=== PATIENT | female | born 2005 | race Caucasian/White ===

== ENCOUNTER 2024-09-30 10:24 | Emergency (ER) | payer OTHER, SELFPAY ==
--- NOTE | 2024-09-30 10:42 | ED_ITS ---
HPI - General Adult General Chief complaint: Abdominal Pain Stated complaint: LT Side Abdominal Pain Time Seen by Provider: 09/30/24 10:43 Source: patient Mode of arrival: ambulatory Limitations: no limitations History of Present Illness HPI narrative: 19-year-old female patient presents to [facility] with complaints of left abdominal pain for the past month. Patient states that she thought she might have just pulled a muscle because she does work out often. Patient states that she feels like the left sided abdominal pain is getting worse and last night did have some vomiting episodes. Patient states that has since resolved. Last normal bowel movement was this morning. Denies fevers, body aches or chills. Denies chest pain or shortness of breath. Denies any recent illness. Patient states last menstrual cycle was approximately 2 months ago but states that that is normal for her. Patient is currently on control denies any sexual activity. Related Data Allergies Allergy/AdvReac Type Severity Reaction Status Date / Time Penicillins Allergy Unknown Verified 06/26/19 19:26 Review of Systems Review of Systems: CONSTITUTIONAL: Denies fever, chills, or sweats. EYES: Denies visual changes, redness, or discharge. ENT: Denies rhinorrhea, congestion, sore throat, or otalgia. CARDIOVASCULAR: Denies chest pain, palpitations, or edema. RESPIRATORY: Denies cough or dyspnea. GASTROINTESTINAL: Positive left-sided abdominal pain, denies nausea, positive vomiting, denies diarrhea. GENITOURINARY: Denies dysuria or hematuria. SKIN: Denies rash or itching. MUSCULOSKELETAL: Denies back pain, joint pain, or myalgia. NEUROLOGIC: Denies headache, numbness, or weakness. PSYCHIATRIC: Denies anxiety or depression. PMFSH Past Medical History Medical History (Updated 09/30/24 @ 11:23 by DIPTI Cardoso) Pathological fracture, left finger(s), initial encounter for fracture Comments At the time of my signature I agree with nursing past medical history, surgical, social, and family history. There is no relevant family history pertinent to the presenting complaint. Exam Narrative: GENERAL: Well-appearing, well-nourished, and in no acute distress. HEAD: Normocephalic, atraumatic. EYES: PERRLA and EOMI. ENT: Nares clear, no rhinorrhea or epistaxis. Mucous membranes moist. NECK: Supple. No lymphadenopathy CHEST: Clear to auscultation. No respiratory distress. HEART: Regular rate and rhythm. No murmur heard. Normal peripheral pulses. ABDOMEN: Soft, flat, nondistended. No guarding, rebound tenderness, or rigid. No pulsatilla masses. hyperactive Bowel sounds present in all four quadrants. No organomegaly. Negative Louis?s sign. No periumbicial tenderness. patient complain of tenderness to left upper quadrant on palpation. No Supra public tenderness or distension. Good femoral pulses bilaterally. No hernia noted. No scars or surface trauma. EXTREMITIES: Normal range of motion. No edema. SKIN: Warm, dry, no rash. NEURO: No focal deficits. Alert and oriented x3. Course Course Level of Care: Express Care Visit Reevaluation(s) Reevaluation #1: re-evaluated patient notified her that her urine does not show anything concerning in her test is negative today. Discussed with patient that I highly recommend that she follow-up with her primary doctor and possibly get an ultrasound for further evaluation. Discussed with patient to continue to monitor symptoms if she has worsening symptoms such as worsening abdominal pain, spiking fevers, vomiting or diarrhea then I highly recommend she go to the ER for further evaluation. Discussed with patient I do not see anything that is of concern to day to center the emergency department but again recommend to monitor her symptoms. Patient verbalized understanding denies any other questions or concerns at this time. Date: 09/30/24 Time: 11:26 Vital Signs Vital signs: Vital Signs Temperature 36.7 C 09/30/24 11:00 Pulse Rate 115 H 09/30/24 11:00 Respiratory Rate 20 09/30/24 11:00 Blood Pressure 106/64 09/30/24 11:00 Pulse Oximetry 99 09/30/24 11:00 Oxygen Delivery Room Air 09/30/24 11:00 Temperature 36.7 C 09/30/24 11:00 Pulse Rate 115 H 09/30/24 11:00 Respiratory Rate 20 09/30/24 11:00 Blood Pressure 106/64 09/30/24 11:00 Pulse Oximetry 99 09/30/24 11:00 Oxygen Delivery Room Air 09/30/24 11:00 vital signs reviewed. Medical Decision Making MDM Narrative Medical decision making narrative: Plan of care patient is to obtain a urine dip and a test to assess. Discussed with patient that we are not equipped to workup abdominal pain here however due to fact that she is not having severe pain and there is no fever or sick symptoms involved with this most likely will need follow-up with her primary doctor to obtain outpatient testing such as ultrasound. discussed with patient if symptoms worsen then she would need to go the ER for further evaluation. Patient verbalized understanding. Differential Diagnosis Differential Diagnosis: Differential diagnosis: Appendicitis, ovarian torsion, gallbladder disease, ovarian torsion, pancreatitis, lower lobe pneumonia,AAA, AMI or ACS, DKA, diverticulitis. Uncomplicated lower UTI, uncomplicated UTI, pyelonephritis Vital Signs Vital Signs: Vital Signs Temperature 36.7 C 09/30/24 11:00 Pulse Rate 115 H 09/30/24 11:00 Respiratory Rate 20 09/30/24 11:00 Blood Pressure 106/64 09/30/24 11:00 Pulse Oximetry 99 09/30/24 11:00 Oxygen Delivery Room Air 09/30/24 11:00 Temperature 36.7 C 09/30/24 11:00 Pulse Rate 115 H 09/30/24 11:00 Respiratory Rate 20 09/30/24 11:00 Blood Pressure 106/64 09/30/24 11:00 Pulse Oximetry 99 09/30/24 11:00 Oxygen Delivery Room Air 09/30/24 11:00 Lab Data Labs: Lab Results 09/30/24 Range/Units 11:12 POC Urine Color Yellow POC Urine Clarity Clear POC Urine pH 6.5 POC Ur Specif [place] 1.010 POC Urine Protein Negative (Negative) POC Ur Glucose (UA) Negative (Negative) POC Urine Ketones Negative (Negative) POC Urine Blood Negative (Negative) POC Urine Nitrite Negative (Negative) POC Urine Bilirubin Negative (Negative) POC Urine Urobilinogen 0.2 POC U Leukocyte Esteras 1+ (Negative) Critical Care Time Critical Care Time Critical Care Time: No Discharge Plan Discharge Clinical Impression: Left sided abdominal pain of unknown cause Patient Disposition: Home, Self-Care Condition: Stable Instructions: Antibiotic Form, Abdominal Pain (ED) Additional Instructions: No serious cause of abdominal pain is found at this time. It is important to carefully watch for changes in the abdominal pain that might suggest a serious condition. See your doctor or return to the emergency department immediately if your condition gets worse. These symptoms suggest serious causes of abdominal pain: Your unable to walk easily or walking in a bent over position. You are experiencing pain in the right lower part of her abdomen. Stepping or jumping results in severe pain. The abdomen is hard and painful when you press on it. There is severe abdominal pain when coughing. You are vomiting or gagging. Vomiting is bloody or green or looks like chocolate or coffee. The belly looks very full or basic. You're experiencing severe pain every 3-20 minutes. The stool is bloody or black. You are drowsy, weak, fussy, pale. Patient Language: Jamaican Follow-up/Referrals: Robby,Jed [Other] Time of Disposition: 11:24
[2024-09-30 11:00] VITALS: BP 106/64; PULSE 115; RESP 20; TEMP 36.7; O2SAT 99
[2024-09-30 11:17] LABS: EDUAAPPEAR Clear; EDUABILI Negative (Negative); EDUABLOOD Negative (Negative); EDUACOLOR1 Yellow; EDUAGLUCOSE Negative (Negative); EDUAKETONE Negative (Negative); EDUALEUKO 1+ (Negative); EDUANITRATE Negative (Negative); EDUAPH 6.5; EDUAPROTEIN Negative (Negative); EDUAUROBILI 0.2
[2024-09-30 18:51] LABS: BEDSIDEPREGUCG Negative (Negative)
--- OUTSIDE RECORDS SUMMARY | 2024-10-04 05:22 | XMS_ITS | Patient Health Summary ---
Author Organization [facility] Address [address] [place] [address] Care Team Providers Care Bookstore Clerk Name Role Phone Jed Bustamante MD Primary Care Provider [phone] Note from [facility],non-owned Affiliates and Associated Physician Practices is amultiple site organization consisting of ambulatory clinics and hospital sitesin [place], [place], [place] and [place]. This disclosure is being madepursuant to the Care Everywhere program and may not contain all information available regarding this patient. Last updated 18.[facility] Allergies * Penicillins(Rash) -High Criticality Medications * Be aware that medications may not be up to date on this document. Alwaysverify current medications with the patient. * loratadine (CLARITIN) 5 MG chew tablet Take 5 mg by mouth daily. 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 Seasonal allergies 01/22/2011 Atopic dermatitis 01/22/2011 Social History Tobacco Use Types Packs/Day Years Used Date Smoking Tobacco: Never Assessed Sex and Gender Information Value Date Recorded Sex Assigned at Not on file Gender Identity Not on file Sexual Orientation Not on file Last Filed Vital Signs Vital Sign Reading Time Taken Comments Blood Pressure 82/48 01/22/2011 8:42 AM CDT Pulse 88 01/22/2011 8:42 AM CDT Temperature - - Respiratory Rate 20 01/22/2011 8:42 AM CDT Oxygen Saturation - - Inhaled Oxygen Concentration - - Weight 26.4 kg (58 lb 3.2 oz) 01/22/2011 8:42 AM CDT Height 128.9 cm (4' 2.75 ) 01/22/2011 8:42 AM CD T Body Mass Index 15.89 01/22/2011 8:42 AM CDT Care Teams Bookstore Clerk Relationship Specialty Start Date End Date Jed Bustamante MD [address] [place] [phone] PCP - General 01/22/11
--- OUTSIDE RECORDS SUMMARY | 2024-10-04 05:22 | XMS_ITS | Encounter Summary ---
Author Organization [facility] Address [address] [place] [address] Phone Care Team Providers Care Internal Corrosion Specialist Name Role Phone Jed Bustamante MD Primary Care Provider Reason for Visit * Reason Comments Follow-up Encounter Details Date Type Department Care Team (Late st Contact Info) Description 05/25/2022 1:10 PM CDT Office Visit [facility] Orthopaedic Surgery [address] [place] [address] [place] [phone] [place] [address] [place] [address] Synovial plica of right knee (Primary Dx) Social History Tobacco Use Types Packs/Day Years Used Date Smoking Tobacco: Never Smokeless Tobacco: Never AUDIT-C Answer Date Recorded Q1: How often do you have a drink containing alc ohol? Never 12/26/2021 Average Number of Drinks Not on file 022 Q3: How often do you have si x or more drinks on one occasion? 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 Patient Name: Dm Burgess Date: 05/25/2022 INTERIM HISTORY: Follow up from Right Knee Arthroscopy, Resection Plica - Right on 12/26/2021 The patient has recently had pain: every couple of days The current level of pain is: 2 The worst it has been in the last few days is: 5 only when she sits with her legs crossed for long period of time Wound complaints: None Patient is recovered from surgery PHYSICAL EXAM: Incision: well healed Erythema: No Edema: No Effusion: No Ecchymosis: No Discharge: No 0-145 degrees of flexion without crepitus No tenderness Good quad bulk IMPRESSION/DIAGNOSIS: Doing well 5 months following surgery. PLAN: I reassured the patient that she has reached a full recovery. We gave her full release to get back to volleyball. Follow-up is as needed. She had all her questions answered and appears pleased with the outcome of her treatment. Return to clinic: PRN documented in this encounter Plan of Treatment Not on file documented as of this encounter Visit Diagnoses Diagnosis Synovial plica of right knee- Primary documented in this encounter Care Teams Internal Corrosion Specialist Relationship Specialty Start Date End Date Jed Bustamante MD [address] [place] [id number] PCP - General Pediatrics 10/21/21 documented as of this encounter
--- OUTSIDE RECORDS SUMMARY | 2024-10-04 05:22 | XMS_ITS | Encounter Summary ---
Author Organization [facility] Address [address] [place] [address] Care Team Providers Care Plastic Dolls Mold Filler Name Role Phone Jed Bustamante MD Primary Care Provider [phone]- [phone] Reason for Visit * Reason Comments Evaluation possible premature a osvaldonarche Encounter Details Date Type Department Care Team (Latest Contact Info) Description 01/22/2011 8:30 AM CDT - 01/22/2011 8:34 AM CDT Hospital Encounter [facility] - Endocrinology [address] [place] [id number] Discharge Disposition: Home or Self Care Social History Tobacco Use Types Packs/Day Years Used Date Smoking Tobacco: Never Assessed Sex and Gender Information Value Date Recorded Sex Assigned at Not on file Gender Identity Not on file Sexual Orientation Not on file documented as of this encounter Discharge Instructions * Patient Instructions* Shahriar Stapleton MD - 01/22/2011 9:12 AM CDT Call the office in one month ([phone]) to schedule appointment in six months documented in this encounter Progress Notes * Shahriar tSapleton MD - 01/22/2011 8:53 AM CDT Dm Burgess and her mother were seen in our outpatient Pediatric Endocrinology offices at [facility] on January 22, 2011. She is a 5 y.o. 8 m.o. girl who is referred for evaluation of of a two year history of adult type body odor and a six month history of pubic hair growth. Present Illness Dm is an otherwise healthy girl with a history of seasonal allergies and atopic dermatitis. She has not developed problems with facial acne, breast tissue development, headaches, nausea, vomiting,diarrhea, polyuria, polydipsia, fever, or rash. PMH she was born full term by normal spontaneous vaginal delivery following uncomplicated gestation. weight was 7 lb 10 oz with length 20 inches. Hospitalizations:at age two weeks for a febrile illness Surgery: None. Significant injuries:none. Chronic illnesses:seasonal allergies, atopic dermatitis Infectious diseases:none Immunizations:UTD Allergies:Penicillins Regular Medications:Current outpatient prescriptions Medication Sig Dispense Refill ??? loratadine (CLARITIN) 5 MG chew tablet Take 5 mg by mouth daily. Allergy: No history of other allergic problems FAMILY HISTORY Mother, age 36 years, height 5 feet 4.-3/4 inches tall, and recalls menarche at age 14 years. She has no medical problems. Father, age 35 years, height 6 feet 5-3/4 inches tall, and recalls completing growth at age 21 years. He has no medical problems. Sister is 4 years old and has no medical problems. An uncle and female cousin on mother's side of the family have a history of early puberty with the cousin having menarche at age 7 years. There is no family history or significant disorders of stature or of puberty, thyroid disease, diabetes, adrenal disease, pituitary disease, infant or childhood , seizures, mental retardation, congenital disorders of vision or hearing. Social History: Lives with: Parents School: Elementary Stresses: no stress events have occurred REVIEW OF SYSTEMS General: no fevers or weight change ENT: normal Skin: no rash Cardiovascular: no palpitations Gastrointestinal: no heartburn Genitourinary: no urinary frequency Endocrine: no fatigue or temperature intolerance Psychiatric: no anxiety or depression Neurologic: no headaches or tremors Physical Examination: BP 82/48 Pulse 88 Resp 20 Ht 1.289 m (4' 2.75 ) Wt 26.4 kg (58 lb 3.2 oz) BMI 15.89 kg/m2 63.69% of growth percentile based on [id number]. 68.54% of growth percentile based on [id number]. Body mass index is 15.89 kg/(m^2). 54.11% of growth percentile based on BMI-for-age. General: awake, alert, nondistressed-appearing, girl Head: normocephalic/atraumatic Eyes: Conjugate gaze; PERRLA with EOMI and sharp optic disc margins. Ears: Normally-shaped and positioned. Mouth: Hard/soft palates intact; dentition is not carious. 12-year molars have not erupted Neck: supple without thyromegaly. Chest: symmetric and breath sounds are clear bilaterally. Heart: RRR without murmur. Abdomen: soft, nontender, without organomegaly. Skin: normal texture/turgor without birthmarks or acne Sexual maturation: breasts T.S. I with scant Ezequiel II pubic hair growth; no clitoromegaly. Vaginalmucosa is red and unestrogenized. Extremities: Straight and without deformity. Neurological exam: Symmetric and nonfocal. Laboratory data: None.. Discussion: Dm Burgess is a 7-9/12 y.o. year-old girl referred for evaluation of a two year history of adult type body odor and a six month history of pubic hair growth which I suspect are of benign, physiologic origins. She does not have other features suggesting that this condition is rapidly progressing and without other features suggestive of precocious puberty. I reviewed the options ofexpectant observation vs. Obtaining screening studies, including a bone age, serum DHEA-S, 17-hydroxyprogesterone and total testosterone to exclude other, less likely disorders, including late onset 21- hydroxylase deficiency or an adrenal adenoma as an explanation for her features. Mother preferredexpectant observation for the time being. I would like to document her interval progression of her physical examination with serial examinations. A return appointment was scheduled in six months. Impression: 1. 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 Management Plan: Return appointment in six months, sooner if questions or concerns arise. Of the 30 minutes spent with Dm, 10 were spent discussing evaluation/management. documented in this encounter Miscellaneous Notes * Miscellaneous Scans - Document, Scanned - 09/29/2011 8:05 PM CST 'S SURVEYOR * Miscellaneous Scans - Document, Scanned - 06/17/2011 8:24 AM CDT * Miscellaneous Scans - Document, Scanned - 02/02/2011 8:11 PM CDT documented in this encounter Plan of Treatment Not on file documented as of this encounter Visit Diagnoses Not on filedocumented in this encounter Care Teams Plastic Dolls Mold Filler Relationship Specialty Start Date End Date Jed Bustamante MD [address] [place] [phone] PCP - General 01/22/11 documented as of this encounter
--- OUTSIDE RECORDS SUMMARY | 2024-10-04 05:22 | XMS_ITS | Encounter Summary ---
Author Organization [facility] Address [address] [place] [address] Phone Care Team Providers Care American History Professor Name Role Phone Jed Bustamante MD Primary Care Provider Reason for Visit * Reason Comments Follow-up Encounter Details Date Type Department Care Team (Late st Contact Info) Description 01/07/2022 12:10 PM CDT Telemedicine [facility] Orthopaedic Surgery [address] [place] [address] [place] [address] [place] [address] Synovial plica of right knee (Primary Dx) [...] on file 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 This was a telemedicine visit with Dm Burgess alone which took place via Real-time video connection (InTouch, Zoom or similar). During the visit, I was located in the office and the patient was located at home in the [facility]. The patient: has been informed that the visit may not be secure and acknowledged the information. The option of participating in a telephone or video visit during the COVID-19 [facility] emergencywas explained to them. After being given an opportunity to ask questions about and discuss this type of visit, they verbally consented to proceeding with the telephone/video visit and understand thatthis service replaces an office visit. She reports that she is feeling very good after her surgery. She is sore but she says it feels better than prior to surgery. She denies any wound complaints. Physical examination deferred Impression: Lang is doing well 12 days after an arthroscopic resection of a plica from her right knee. Plan: I showed her the arthroscopic photos over zoom and explained what we found did. I explained why I am optimistic her knee should feel better. I explained that she can slowly get back to light activityas tolerated. I want to see her when she gets back to [place] in February or sooner if any problems arise. She had all her questions answered and appears comfortable with this plan going forward. documented in this encounter Plan of Treatment Not on file documented as of this encounter Visit Diagnoses Diagnosis Synovial plica of right knee- Primary documented in this encounter Care Teams American History Professor Relationship Specialty Start Date End Date Jed Bustamante MD [address] [place] [address] PCP - General Pediatrics 10/21/21 documented as of this encounter
--- OUTSIDE RECORDS SUMMARY | 2024-10-04 05:22 | XMS_ITS | Encounter Summary ---
Author Organization [facility] Healthcare Address [address] [place] [address] Care Team Providers Care Pain Management Nurse Practitioner Name Role Phone Jed Bustamante MD Primary Care Provider Reason for Referral * Diagnostic Imaging (Routine) - Closed Specialty Diagnoses / Procedures Referred By Ashly barraaz Referred To Contact Diagnoses Breast lump on right side at 7 o'clock position Procedures US Breast Right Limited Latha Melton NP Phone: tel: fax: [address] [address] Referral ID Status Reason Start Date Expiration Date Visits Re quested Visits Authorized [id number] Closed 02/09/2023 03/10/2024 1 1 Reason for Visit * Diagnostic Imaging (Routine) - Closed Specialty Diagnoses / Procedures Referred By Ashly barraza Referred To Contact Diagnoses Breast lump on right side at 7 o'clock position Procedures US Breast Right Limited Latha Melton NP Phone: tel: fax: [address] [phone] Referral ID Status Reason Start Date Expiration Date Visits Re quested Visits Authorized [id number] Closed 02/09/2023 03/10/2024 1 1 Encounter Details Date Type Department Care Team (Latest Contact Info) Description 03/08/2023 2:08 PM CDT - 03/08/2023 11:59 PM CDT Hospital Encounter [facility] Medical Office Bldg 1 [facility] [address] [place] [address] Breast lump on right side at 7 o'clock position Discharge Disposition: Discharge to home or self care Social History Tobacco Use Types Packs/Day Years [...] on file 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 Gender Identity Not on file Sexual Orientation Not on file documented as of this encounter Medications at Time of Discharge HYDROcodone-acetamin ophen (NORCO) 5-325 mg per tabletIndications:Pa in TAKE 1-2 TABLETS EVERY 6 HOURS NEEDED FOR PAIN 12 tablet 12/26/2021 ibuprofen (ADVIL,MOTRIN) 200 mg tab/cap Take 400 mg by mouth every 6 (six) hours as needed for pain ondansetron ODT (ZOFRAN-ODT) 4 mg disintegrating tablet Take 1 tablet (4 mg total) by mouth every 8 (eight) hours as needed for nausea or vomiting 12 tablet 12/26/2021 Vienva 0.1-20 mg-mcg per tabletIndications:Dy smenorrhea Take 1 tablet by mouth nightly 11/12/2021 documented as of this encounter Discharge Disposition Disposition Code Departure Means Destination Discharge to home or self care documented in this encounter Plan of Treatment Not on file documented as of this encounter Procedures Procedure Name Priority Date/Time Associated Diagnosis Comments US BREAST RIGHT LIMITED Schedule Routine, Read Routine (OP Routine) 03/08/2023 2:34 PM CDT Breast lump on right side at 7 o'clock position documented in this encounter Results * US Breast Right Limited (03/08/2023 2:34 PM CDT) Anatomical Region Laterality Modality Breast Right Ultrasound 03/08/2023 2:38 PM CDT Impressions 03/08/2023 2:40 PM CDT ?? No suspicious finding by ultrasound at the right breast palpable area of concern (7 o'clock, 4 cm from the nipple). ??Clinical follow-up is recommended. ??Any further evaluation regarding this palpable area should be based on clinical grounds. Annual screening mammography beginning at age 40 is recommended, unless earlier screening is warranted based on the patient's family history or other risk factors. ??I discussed these findings and impression with the patient at the time of the examination. BIRADS 1 - Negative THIS IS AN ELECTRONICALLY VERIFIED FINAL REPORT 03/08/2023 2:40 PM - Electronically signed by ??Ryan Kirk M.D., MD: D: ??03/08/2023 2:40 PM T: ??03/08/2023 2:40 PM Report ID: [id number] Reading Location: ??[facility] Narrative 03/08/2023 2:40 PM CDT EXAM DESCRIPTION: ?US BREAST RIGHT LIMITED REASON FOR STUDY: ?? 17-year-old female presents for ultrasound of a palpable lump at the 7 o'clock position of the right breast noted by her physician on physical examination. COMPARISON: ?? None available TECHNIQUE: Limited grayscale ultrasound of the right breast was performed. FINDINGS: Targeted ultrasound of the right breast palpable area of concern at the 7 o'clock position, 4 cm from the nipple demonstrates only normal tissue with no suspicious solid mass, cyst, or other discernible abnormality. us Latha Melton GRE INSTRUCTOR IMG MAMMO PROCEDURES F inal Result documented in this encounter Visit Diagnoses Diagnosis Breast lump on right side at 7 o'clock position Lump or mass in breast documented in this encounter Care Teams Pain Management Nurse Practitioner Relationship Specialty Start Date End Date Jed Bustamante MD [address] [place] [address] PCP - General Pediatrics 10/21/21 documented as of this encounter
--- OUTSIDE RECORDS SUMMARY | 2024-10-04 05:22 | XMS_ITS | Clinical Summary ---
Author Organization [facility] Care Team Providers Care Territory Sales Manager Name Role Phone Unavailable Primary Care Provider Unavailabl e Social History Tobacco Use Types Packs/Day Years Used Date Smoking Tobacco: Never Assessed Comments Unknown Sex and Gender Information Value Date Recorded Sex Assigned at Not on file Legal Sex Female 8:03 AM CDT Gender Identity Not on file Sexual Orientation Not on file Plan of Treatment Health Maintenance Due Date Last Done Comments Hepatitis C Virus (HCV) Screening 2003 TdaP Immunization 2003 Human Papillomavirus (HPV) Immunization (1 - 3-dose series) 2018 Hepatitis B Immunization (1 of 3 - 19+ 3-dose series) 2022 SARS-COV-2 Immunization (24 season) 2023 Influenza Immunization (Seas on Ended) 2024 Meningococcal Immunization (ACWY) Aged Out No longer eligible based on patient's age to complete this topic Pneumococcal Immunization Combined Aged Out No longer eligible based on patient's age to complete this topic Rotavirus Immunization Aged Out No lo nger eligible based on patient's age to complete this topic
--- OUTSIDE RECORDS SUMMARY | 2024-10-04 05:22 | XMS_ITS | Clinical Summary ---
Author Organization [facility] [employer] [facility] Address [address] [place] [address] Care Team Providers Care Manager Star Name Role Phone Jed Bustamante MD Primary Care Provider [phone]- [phone] Source Comments [facility] [employer] [facility]),non-owned Affiliates and Associated Physician Practices is amultiple site organization consisting of ambulatory clinics and hospital sitesin [place], [place], [place]. This disclosure is being madepursuant to the Care Everywhere program and may not contain all information available regarding this patient. Last updated 18.[facility] [employer] [facility] Allergies Active Allergy Reactions Criticality Noted Date Comments Penicillins Rash High 01/22/2011 Medications * Be aware that medications may not be up to date on this document. Alwaysverify current medications with the patient. Medication Sig Dispensed Refills Start Date End Date Status loratadine (CLARITIN) 5 MG chew tablet Take 5 mg by mouth daily. 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 Overview (03/22/2011): Probable benign origins Seasonal allergies 01/22/2011 Atopic dermatitis 01/22/2011 Social [...] Mass Index 15.89 01/22/2011 8:42 AM CDT Plan of Treatment Health Maintenance Due Date Last Done Comments PAP SMEAR 2003 HIV SCREENING 2018 HPV VACCINE (1 - 3-dose series) 2018 CHLAMYDIA/GONORRHEA SCREENING 2019 HEPATITIS C SCREENING 04/22/2021 DTAP/TDAP/TD VACCINES (1 - Tdap) 2022 HEPATITIS B VACCINE (1 of 3 - 19+ 3-dose series) 2022 DEPRESSION SCREENING 10/18/2023 COVID-19 VACCINE (1 - 2023-2 5 season) 2024 INFLUENZA VACCINE (#1) 2024 ZOSTER VACCINE (1 of 2) 2053 HIB VACCINE Aged Out No longer eligi ble based on patient's age to complete this topic MENINGOCOCCAL VACCINE Aged Out No leidy jesse eligible based on patient's age to complete this topic PNEUMOCOCCAL VACCINE Aged Out No long er eligible based on patient's age to complete this topic Care Teams Manager Star Relationship Specialty Start Date End Date Jed Bustamante MD [address] [place] [address] PCP - General 01/22/11
--- OUTSIDE RECORDS SUMMARY | 2024-10-04 05:22 | XMS_ITS | Encounter Summary ---
Author Organization [facility] Address [address] [place] [address] Care Team Providers Care Power Transformer Repair Supervisor Name Role Phone Unavailable Primary Care Provider Unavailabl e Encounter Details Date Type Department Care Team (Late st Contact Info) Description 06/02/2021 Lab Requisition [facility] Community Testing [facility] [address] [place] [address] Andriy Mackey MD [address] [place] [address] [address] [place], [place] [address] Social History Tobacco Use Types Packs/Day Years Used Date Smoking Tobacco: Never Assessed Comments Unknown Sex and Gender Information Value Date Recorded Sex Assigned at Not on file Legal Sex Female 8:03 AM CDT Gender Identity Not on file Sexual Orientation Not on file documented as of this encounter Plan of Treatment Not on file documented as of this encounter Procedures Procedure Name Priority Date/Time Associated Diagnosis Comments SARS-COV-2 PCR [facility] ONLY Routine 06/02/2021 8:38 AM CDT documented in this encounter Visit Diagnoses Not on filedocumented in this encounter
--- OUTSIDE RECORDS SUMMARY | 2024-10-04 05:22 | XMS_ITS | Data Portability ---
Author Organization [facility] [facility] [employer] Address [address] [place] [place] [address] Assessment Encounter Date Assessment Date Assessment LastModified by Organization Details LastModified Time 05/19/2021 05/19/2021 Well-appearing adolescent presents for 16-year WCC. Developing well. Assessed vision and hearing risk factors, . Administered depression screening, . Assessed anemia risk, no need for hematocrit/hemo globin today. Assessed TB risk factors, PPD today. Assessed dyslipidemia risk factors, screen today. STI panel: . . Anticipatory guidance discussed and provided as below, including appropriate nutrition and activity, mental health, sexual activity, and tobacco, alcohol, and drug use. Follow up as scheduled for next WCC, sooner if any new concerns or symptoms. bbardon Not available 05/19/2021 11:18:18 05/25/2022 05/25/2022 Well-appearing young adult presents for 17-year well visit. Assessed vision and hearing risk factors, no concern. Administered depression screening, no concerns. Assessed anemia risk, no need for hematocrit/hemo globin today. Assessed TB risk factors, no need for PPD today. Dyslipidemia screening: ordered lipid panel at previous visit. Will give vaccine as shown below. Anticipatory guidance discussed and provided as below, including appropriate nutrition and activity, mental health, sexual activity, and tobacco, alcohol, and drug use. Follow up in one year for next well visit, sooner if any new concerns or symptoms. jdaesch Not available 05/25/2022 10:53:46 Plan of Treatment Reminders Order Date Submit Date Provider Last Modified By Organization Details Last Modified Time Details Appointments None record ed. Lab None record ed. Referral None record ed. Procedures None record ed. Surgeries None record ed. Imaging None record ed. Medication Orders None record ed. Patient TargetsNo targets recorded. Patient Instructions Encounter Date Encounter Id Patient Instructions Last Modified By Organization Details Last Modified Time 05/19/2021 [id number] Refused Hep A an d HPV vaccines. bbardon Not available 05/19/2021 11:34:08 05/25/2022 [id number] Well Visit, Ages 18 to 65: Care Instructions [email or web address] Not available 05/25/2022 10:06:42 learning about healthy sexuality and your child jdaesch Not available 05/25/2022 10:06:42 learning about healthy eating for teens jdaesch Not available 05/25/2022 10:06:42 learning about physical activity for teens jdaesch Not available 05/25/2022 10:06:42 Continue promoting healthy nutritional food choices, adequate fluid intake, exercise/activity , adequate sleep hygeine and screen time no more than 1 hour . Ensure proper safety practices including choking hazards, swimming safety, sun exposure/sun screen, helmets when on bike/scooter. Follow up at next well child exam or sooner as needed. jdaesch Not available 05/25/2022 10:53:06 Well appearing, well developed. Appropriate for age. Questions and concerns addressed with parent(s) Follow up as scheduled for next WC or sooner as needed. jdaesch Not available 05/25/2022 10:53:14 Reason for Referral None Reported. Problems Name Problem SNOMED Code Status Onset Date Resolution Date Notes Provider Name and Address Organization Details Recorded Time Allergic rhinitis 40049233 Active 2013 Allergic Rhinitis; Comments: Chronici ty: C Reporte dDate: 4 9:18 AM Not Available [facility] 1 03:05:39 Problem Notes None recorded. Medical Equipment None Reported. Allergies Allergen ID Allergen Name Allergen Category Reaction Reaction Severity Criticality Documentation Date Start Date Code Code System Note Provider Name and Address Organization Details Recorded Time 179 penicilli n G benzathin e medicatio n Not available Not available Not available 03/11/20212013 7982 RxNorm Not Available [facility] 03:05:48 Medications Name Sig Start Date Stop Date Status Note LastModified by Organization Details LastModified Time hydrocodone 5 mg-acetaminoph en 325 mg tablet TAKE 1 TO 2 TABLETS BY MOUTH EVERY 6 HOURS NEEDED FOR PAIN active Not Available Not Available No t Available permethrin 5 % topical cream active Not Available Not Availabl e Not Available triamcinolone acetonide 0.1 % topical cream APPLY TO THE AFFECTED AREA BID FOR 7 DAYS active Not Available Not Available No t Available meloxicam 7.5 mg tablet active Not Available Not Available No t Available ondansetron 4 mg disintegrating tablet active Not Available Not Available Not Available Vienva 0.1 mg-20 mcg tablet TAKE 1 TABLET BY MOUTH EVERY DAY active Not Available Not Available No t Available Vitals Date Recorded Body temperature Body height Body mass index (BMI) Percentile per age and sex Body mass index (BMI) Body weight Heart rate Systolic blood pressure Diastolic blood pressure Provider Name and Address Organization Details Last Updated DateTime 1 98 [degF] 170.81 cm 45 % 20.9 kg/m2 12844.8 9 g 72 /min 108 mm[Hg] 66 mm[Hg] Jackson Abraham [facility] 1 11:08:40 Date Recorded Body temperature Body height Body mass index (BMI) Percentile per age and sex Body mass index (BMI) Body weight Heart rate Systolic blood pressure Diastolic blood pressure Provider Name and Address Organization Details Last Updated DateTime 2 97 [degF] 171.45 cm 58 % 22.2 kg/m2 29961.5 8 g 62 /min 121 mm[Hg] 75 mm[Hg] Noel Haines [facility] 2 09:54:55 Social History None recorded. Functional Status None recorded. Mental Status None recorded. Family History Nothing Reported Notes:and unchanged since [facility] visit: family history reviewed, family history reviewed family history of atopic dermatitis, family history of atopic dermatitis, family history of atopic dermatitis Medical History No medical history recorded. Gynecological HistoryNo gynecological history recorded. Obstetrics History GPAL:G 0 P 0 0 0 0 Immunizations Vaccine Type Date Status Note Provider Nam e and Address Organization Details Recorded Time meningococcal B, OMV 2 completed Anuj Caldwell, TAMMIE [address], [place], [address], [facility] 05/25/2022 10:52:49 Hep B, unspecified formulation 4 completed Not Available [facility] 05/25/2022 09:51:28 Hep B, unspecified formulation 3 completed Not Available [facility] 05/25/2022 09:51:28 Hep B, unspecified formulation 8 completed Not Available [facility] 05/25/2022 09:51:28 DTaP 4 completed Not Available [facility] 05/25/2022 09:51:28 DTaP 3 completed Not Available [facility] 05/25/2022 09:51:27 DTaP 3 completed Not Available [facility] 05/25/2022 09:51:28 DTaP 4 completed Not Available [facility] 05/25/2022 09:51:28 DTaP 8 completed Not Available [facility] 05/25/2022 09:51:27 IPV 3 completed Not Available [facility] 05/25/2022 09:51:28 IPV 3 completed Not Available [facility] 05/25/2022 09:51:27 IPV 4 completed Not Available [facility] 05/25/2022 09:51:28 IPV 8 completed Not Available [facility] 05/25/2022 09:51:27 Hib (PRP-T) 3 completed Not Available [facility] 05/25/2022 09:51:28 Hib (PRP-T) 3 completed Not Available [facility] 05/25/2022 09:51:28 Hib (PRP-T) 4 completed Not Available [facility] 05/25/2022 09:51:28 Hib (PRP-T) 4 completed Not Available [facility] 05/25/2022 09:51:28 MMR 8 completed Not Available [facility] 05/25/2022 09:51:28 MMR 4 completed Not Available [facility] 05/25/2022 09:51:28 varicella 4 completed Not Available [facility] 05/25/2022 09:51:28 varicella 8 completed Not Available [facility] 05/25/2022 09:51:27 Tdap 3 completed Not Available [facility] 05/25/2022 09:51:28 meningococcal MCV4, unspecified formulation 3 completed Not Available [facility] 05/25/2022 09:51:27 meningococcal MCV4, unspecified formulation 9 completed Not Available [facility] 05/25/2022 09:51:28 meningococcal B, OMV 1 completed Jackson Abraham [facility] 05/19/2021 11:48:30 Past Encounters Encounter ID Performer Location Encounter Start Date Encounter Closed Date Diagnosis/Indication Diagnosis SNOMED-CT Code Diagnosis ICD10 Code [id number] Génesis Gant NP, Main Office [address] [facility] [address] [place] [address] 05/19/2021 11:05:42 05/19/2021 11:35:33 Well child 711892846 Z00.129 Vaccination given 042645 003 Z23 [id number] Anuj Caldwell NP Main Office [address] [facility] [address] [address] [place] [place], [place] [address] 05/25/2022 09:50:18 06/16/2022 21:00:52 Well child 960204085 Z00.129 Vaccination given 682318 003 Z23 Health Concerns Section Related Observation LastModified by Organization Detai ls LastModified Time None Recorded Concern Status LastModified by Organization Details LastModified Time None Recorded Advance Directives Directive None Recorded Payers Encounter Date Sequence Insurance Name Policy Number Policy Saldivar Covered Member ID Saldivar Member ID Guarantor Name 05/19/2021 1 [employer] () Ryan Nicole [id number] Ryan Nicole 05/25/2022 1 [employer] () Ryan Nicole [id number] Ryan Nicole Notes Date Note Type Note Provider Name and Address Organization Details Recorded Time 05/25/2022 text/html 17 year WCNo questions or concerns Anuj Caldwell NP [address] [facility] [address], [place], [address], [place] [facility] 05/25/2022 10:54:16 OBGyn Episode No OBEpisode recorded.
--- OUTSIDE RECORDS SUMMARY | 2024-10-04 05:22 | XMS_ITS | Encounter Summary ---
Author Organization [facility] Address [address] [place] [address] Care Team Providers Care Student Success Advisor Name Role Phone Jed Bustamante MD Primary Care Provider [phone]- [phone] Encounter Details Date Type Department Care Team (Latest Contact Info) Description 01/22/2011 8:35 AM CDT - 01/22/2011 11:59 PM CDT Hospital Encounter [facility] - Endocrinology [address] [place] [address] Shahriar Stapleton MD [address] [place] [address] Endocrinology Discharge Disposition: Home or Self Care Social History Tobacco Use Types Packs/Day Years Used Date Smoking Tobacco: Never Assessed Sex and Gender Information Value Date Recorded Sex Assigned at Not on file Gender Identity Not on file Sexual Orientation Not on file documented as of this encounter Medications at Time of Discharge Medication Sig Dispensed Refills Start Date End Date loratadine (CLARITIN) 5 MG chew tablet Take 5 mg by mouth daily. documented as of this encounter Plan of Treatment Not on file documented as of this encounter Visit Diagnoses Not on filedocumented in this encounter Care Teams Student Success Advisor Relationship Specialty Start Date End Date Jed Bustamante MD [address] [place] [phone] PCP - General 01/22/11 documented as of this encounter
--- OUTSIDE RECORDS SUMMARY | 2024-10-04 05:22 | XMS_ITS | Referral Summary ---
Author Organization [facility] Address [address] [place] [address] Care Team Providers Care Button Maker And Installer Name Role Phone Jed Bustamante MD Primary Care Provider Allergies Active Allergy Reactions Criticality Noted Date Comments Penicillins Rash High 01/22/2011 As a child and adult Medications Vienva 0.1-20 mg-mcg per tabletIndications:D ysmenorrhea Take 1 tablet by mouth nightly 2 Active ibuprofen (ADVIL,MOTRIN) 200 mg tab/cap Take 400 mg by mouth every 6 (six) hours as needed for pain Active meloxicam (MOBIC) 7.5 mg tablet Take 1 tablet (7.5 mg total) by mouth daily for 10 days 10 tablet 2 Active ondansetron ODT (ZOFRAN-ODT) 4 mg disintegrating tablet Take 1 tablet (4 mg total) by mouth every 8 (eight) hours as needed for nausea or vomiting 12 tablet 2 Active HYDROcodone-acetami nophen (NORCO) 5-325 mg per tabletIndications:P ain TAKE 1-2 TABLETS EVERY 6 HOURS NEEDED FOR PAIN 12 tablet 2 Active Active Problems Problem Noted Date Diagnosed Date Synovial plica of right knee 01/07/2022 Complex tear of medial menis cus of right knee as current injury 12/15/2021 Overview (12/15/2021): Added automatically from request for surgery [id number] Tear of medial meniscus of right knee, current 0 12/15/2021 Chronic pain of right knee 10/28/2021 Social History Tobacco Use Types Packs/Day Years [...] on file Legal Sex Female 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 Gender Identity Not on file Sexual Orientation Not on file Last Filed Vital Signs Vital Sign Reading Time Taken Comments Blood Pressure 116/74 12/26/2021 10:20 AM URBAN PLANNER Pulse 52 12/26/2021 10:25 AM URBAN PLANNER Temperature 36.4 ??C (97.5 ??F) 12/26/2021 10:[address] Respiratory Rate 14 12/26/2021 10:25 AM URBAN PLANNER Oxygen Saturation 100% 12/26/2021 10:25 AM URBAN PLANNER Inhaled Oxygen Concentration - - Weight 63.6 kg (140 lb 3.2 oz) 12/26/2021 7:19 A M URBAN PLANNER Height 175.3 cm (5' 9 ) 12/26/2021 7:19 AM URBAN PLANNER Body Mass Index 20.7 12/26/2021 7:19 AM URBAN PLANNER Plan of Treatment Not on file Insurance [facility] [employer] [facility] [employer] Advance Directives For more information, please contact: [phone] Documents on File Type Date Recorded Patient Composition Stone Applicator Expl anation ADVANCE DIRECTIVE 10/28/2021 3:05 PM * Full Code (Latest Code Status on File) Date Activated Date Inactivated Comments 12/26/2021 9:25 AM 12/26/2021 2:35 PM Care Teams Button Maker And Installer Relationship Specialty Start Date End Date Jed Bustamante MD [address] [place] [address] PCP - General Pediatrics 10/21/21
--- OUTSIDE RECORDS SUMMARY | 2024-10-04 05:22 | XMS_ITS | Referral Summary ---
Author Organization [facility] Address [address] [place] [address] Care Team Providers Care Lcac Radar Operator/Navigator Name Role Phone Jed Bustamante MD Primary Care Provider [phone] Source Comments [facility] [employer],non-owned Affiliates and Associated Physician Practices is amultiple site organization consisting of ambulatory clinics and hospital sitesin [place], [place], [place] and [place]. This disclosure is being madepursuant to the Care Everywhere program and may not contain all information available regarding this patient. Last updated 18.[facility] [employer] Allergies Active Allergy Reactions Criticality Noted Date [...] 01/22/2011 8:42 AM CDT Plan of Treatment Not on file Care Teams Lcac Radar Operator/Navigator Relationship Specialty Start Date End Date Jed Bustamante MD [address] [place] [address] [place] [phone] PCP - General 01/22/11
--- OUTSIDE RECORDS SUMMARY | 2024-10-04 05:22 | XMS_ITS | Clinical Summary ---
Author Organization [facility] Address [address] [place] [address] Care Team Providers Care Asphalt Tar And Gravel Roofer Name Role Phone Jed Bustamante MD Primary [...] (12/15/2021): Added automatically from request for surgery [id number] Tear of medial meniscus of right knee, current 0 12/15/2021 Chronic pain of right knee 10/28/2021 Medical History Medical History Date Comments Motion sickness Family History Medical History Relation Name Comments Anesthesia problems Neg Hx Social History Tobacco Use Types Packs/Day Years [...] on file Legal Sex Female 7:21 PM INDUSTRIAL ENGINEERING INTERN Gender Identity Not on file Sexual Orientation Not on file Obstetrics History Para Term AB IAB SAB Ectopic Multiple Livin g Live Births 0 0 0 0 0 0 0 0 0 0 0 Last Filed Vital Signs Vital Sign Reading Time Taken Comments Blood Pressure 116/74 12/26/2021 10:20 AM INDUSTRIAL ENGINEERING INTERN Pulse 52 12/26/2021 10:25 AM INDUSTRIAL ENGINEERING INTERN Temperature 36.4 ??C (97.5 ??F) 12/26/2021 10:[address] Respiratory Rate 14 12/26/2021 10:25 AM INDUSTRIAL ENGINEERING INTERN Oxygen Saturation 100% 12/26/2021 10:25 AM INDUSTRIAL ENGINEERING INTERN Inhaled Oxygen Concentration - - Weight 63.6 kg (140 lb 3.2 oz) 12/26/2021 7:19 A M INDUSTRIAL ENGINEERING INTERN Height 175.3 cm (5' 9 ) 12/26/2021 7:19 AM INDUSTRIAL ENGINEERING INTERN Body Mass Index 20.7 12/26/2021 7:19 AM INDUSTRIAL ENGINEERING INTERN Plan of Treatment Health Maintenance Due Date Last Done Comments Cervical Cancer Screening 2003 Depression Screening 2003 Hepatitis C Screening 2003 Varicella Vaccines (2 of 2 - 2-dose childhood series) 2007 08/02/2004 DTaP/Tdap/Td Vaccine (5 - Tdap) 2014 08/02/2004, 2003, 2003, Additional history exists HPV Vaccines (1 - 3-dose series) 2018 Regular Well Visit/Exam 18-64 2021 Meningococcal B Vaccine (2 of 2 - Risk Bexsero 2-dose series) 06/16/2021 05/19/2021 Influenza Vaccine (#1) 2024 Meningococcal Vaccine Aged Out No leidy jesse eligible based on patient's age to complete this topic Pneumococcal vaccine <65 Aged Out No longer eligible based on patient's age to complete this topic Insurance [facility] CLAIMS [facility] CLAIMS Advance Directives For more information, please contact: [phone] Documents on File Type Date Recorded 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
--- OUTSIDE RECORDS SUMMARY | 2024-10-04 05:22 | XMS_ITS | Encounter Summary ---
Author Organization [facility] Address [address] [place] [address] Care Team Providers Care Process Safety Management Engineer Name Role Phone Unavailable Primary Care Provider Unavailabl e Encounter Details Date Type Department Care Team (Late st Contact Info) Description 06/02/2021 8:15 AM CDT Rapid Evaluation [facility] Community Testing [address] [address] Social History Tobacco Use Types Packs/Day Years [...]
--- OUTSIDE RECORDS SUMMARY | 2024-10-04 05:23 | XMS_ITS | Encounter Summary ---
Author Organization [facility] Address [address] [place] [address] Phone Care Team Providers Care Bronze Chaser Name Role Phone Jed Bustamante MD Primary Care Provider Encounter Details Date Type Department Care Team (Late st Contact Info) Description 12/25/2021 Telephone [facility] Orthopaedic Surgery [address] [address] [place] [address] [place] [address] [place], [place] [id number] Social History Tobacco Use Types Packs/Day Years Used Date Smoking Tobacco: Never Smokeless Tobacco: Never AUDIT-C Answer Date Recorded Q1: How often do you have a drink containing alc ohol? Never 12/26/2021 Average Number of Drinks Not on file 022 Q3: How often do you have si x or more drinks on one occasion? Never 12/26/2021 Comments Unknown Sex and Gender Information Value Date Recorded Sex Assigned at Not on file Legal Sex Female 7:21 PM RESIDENT HALL DIRECTOR Gender Identity Not on file Sexual Orientation Not on file documented as of this encounter Miscellaneous Notes * Telephone Encounter - Rey Arboleda - 12/25/2021 10:57 AM CST LVM for patient needing to find out where she received her Pre Op COVID test. Requested call back FREDA. DENT HALL DIRECTOR documented in this encounter Plan of Treatment Not on file documented as of this encounter Visit Diagnoses Not on filedocumented in this encounter Care Teams Bronze Chaser Relationship Specialty Start Date End Date Jed Bustamante MD [address] [place] [id number] PCP - General Pediatrics 10/21/21 documented as of this encounter
--- OUTSIDE RECORDS SUMMARY | 2024-10-04 05:23 | XMS_ITS | Encounter Summary ---
Author Organization [facility] Address [address] [place] [address] Care Team Providers Care Instructor Painting Name Role Phone Jed Bustamante MD Primary Care Provider Reason for Referral * Diagnostic Imaging (Routine) - Closed Specialty Diagnoses / Procedures Referred By Contac t Referred To Contact Diagnoses Chronic pain of right knee Procedures XR Knee Right 4+ View Shahriar Ritchie MD Phone: tel: fax: [facility] Referral ID Status Reason Start Date Expiration Date Visits Re quested Visits Authorized [id number] Closed 10/28/2021 11/27/2022 1 1 RMATION SYSTEMS AUDIT MANAGER Reason for Visit * Diagnostic Imaging (Routine) - Closed Specialty Diagnoses / Procedures Referred By Contac t Referred To Contact Diagnoses Chronic pain of right knee Procedures XR Knee Right 4+ View Shahriar Ritchie MD Phone: tel: fax: [facility] Referral ID Status Reason Start Date Expiration Date Visits Re quested Visits Authorized [id number] Closed 10/28/2021 11/27/2022 1 1 Encounter Details Date Type Department Care Team (Latest Contact Info) Description 10/28/2021 2:49 PM INFORMATION SYSTEMS AUDIT MANAGER - 10/28/2021 11:59 PM INFORMATION SYSTEMS AUDIT MANAGER Hospital Encounter [facility] Diagnostic Imaging Department [address] [place] [phone] Shahriar Ritchie MD [address] [place] [address] Right knee pain, unspecified chronicity Discharge Disposition: Discharge to home or self care Social History Tobacco Use Types Packs/Day Years Used Date Smoking Tobacco: Never Smokeless Tobacco: Never Comments Unknown Sex and Gender Information Value Date Recorded Sex Assigned at Not on file Legal Sex Female 7:21 PM INFORMATION SYSTEMS AUDIT MANAGER Gender Identity Not on file Sexual Orientation Not on file documented as of this encounter Discharge Disposition Disposition Code Departure Means Destination Discharge to home or self care documented in this encounter Plan of Treatment Not on file documented as of this encounter Procedures Procedure Name Priority Date/Time Associated Diagnosis Comments XR KNEE RIGHT 4 OR MORE VIEWS Schedule Routine, Read Routine (OP Routine) 10/28/2021 2:54 PM INFORMATION SYSTEMS AUDIT MANAGER Right knee pain, unspecified chronicity documented in this encounter Results * XR Knee Right 4+ View (10/28/2021 2:54 PM INFORMATION SYSTEMS AUDIT MANAGER) Anatomical Region Laterality Modality Lower Extremities, Knee Right Computed Radiography 10/28/2021 2:58 PM INFORMATION SYSTEMS AUDIT MANAGER Impressions 10/28/2021 2:58 PM INFORMATION SYSTEMS AUDIT MANAGER Mobile moderate knee joint effusion Small bone island posterior proximal tibial metaphysis Otherwise normal without fracture identified Electronically signed by: Aditya Schmid MD Narrative 10/28/2021 2:58 PM INFORMATION SYSTEMS AUDIT MANAGER EXAMINATION: RIGHT KNEE ?10-28-2021 HISTORY: Pain FINDINGS: AP, tunnel, lateral and merchant view radiographs of the knee are read without comparison. ??There is suprapatellar soft tissue swelling probably due to a small to moderate-sized knee joint effusion. ??However no fracture, dislocation, lytic or blastic lesion is seen other than a small bone island in the proximal tibial metaphysis posteriorly. ??No osteochondral lesion is identified. ??The alignment and mineralization are otherwise normal. Procedure Note Aditya Schmid MD - 10/28/2021 EXAMINATION: RIGHT KNEE 10-28-2021 HISTORY: Pain FINDINGS: AP, tunnel, lateral and merchant view radiographs of the knee are read without comparison. There is suprapatellar soft tissue swelling probably due to a small to moderate-sized knee joint effusion. However no fracture, dislocation, lytic or blastic lesion is seen other than a small bone island in the proximal tibial metaphysis posteriorly. No osteochondral lesion is identified. The alignment and mineralization are otherwise normal. IMPRESSION: Mobile moderate knee joint effusion Small bone island posterior proximal tibial metaphysis Otherwise normal without fracture identified Electronically signed by: Aditya Schmid MD us Shahriar Ritchie MD IMG XR PROCEDURES Final Result documented in this encounter Visit Diagnoses Diagnosis Right knee pain, unspecified chronicity documented in this encounter Care Teams Instructor Painting Relationship Specialty Start Date End Date Jed Bustamante MD [address] [place] [phone] PCP - General Pediatrics 10/21/21 documented as of this encounter
--- OUTSIDE RECORDS SUMMARY | 2024-10-04 05:23 | XMS_ITS | Encounter Summary ---
Author Organization [facility] Address [address] [place] [address] Phone Care Team Providers Care Casing Running Machine Tender Name Role Phone Jed Bustamante MD Primary Care Provider Encounter Details Date Type Department Care Team (Late st Contact Info) Description 11/05/2021 Telephone [facility] Orthopaedic Surgery [address] [place] [phone] Shahriar Ritchie MD [address] [id number] Social History Tobacco Use Types Packs/Day Years Used Date Smoking Tobacco: Never Smokeless Tobacco: Never Comments Unknown Sex and Gender Information Value Date Recorded Sex Assigned at Not on file Legal Sex Female 7:21 PM SALES TECHNICIAN HOME THEATER Gender Identity Not on file Sexual Orientation Not on file documented as of this encounter Miscellaneous Notes * Telephone Encounter - Shahriar Ritchie MD - 11/05/2021 1:22 PM SALES TECHNICIAN HOME THEATER Called and left a message on patient's voicemail. Did discuss that MRI revealed a medial meniscus tear. Likely the source of her pain and popping. Recommended that we have her see a surgeon to discuss given the chronicity of her problem. Advised her to contact our office to let us know which way she would like to approach things given that she was heading [place] to [place] of [place]. Did also recommend that she hold off on activity since she is having persistent pain and evidence of the torn meniscus on MRI ----- Message from MEHREEN Russell sent at 11/05/2021 9:06 AM SALES TECHNICIAN HOME THEATER ----- Regarding: MRI Results/Right knee Patient had MRI of right knee on 11/04/21 at 5:45pm (OC). Callback: # #Ok to leave results on voicemail S TECHNICIAN HOME THEATER S TECHNICIAN HOME THEATER documented in this encounter Plan of Treatment Not on file documented as of this encounter Visit Diagnoses Not on filedocumented in this encounter Care Teams Casing Running Machine Tender Relationship Specialty Start Date End Date Jed Bustamante MD [address] [place] [id number] PCP - General Pediatrics 10/21/21 documented as of this encounter
--- OUTSIDE RECORDS SUMMARY | 2024-10-04 05:23 | XMS_ITS | Encounter Summary ---
Author Organization [facility] Healthcare Address [address] [place] [address] Care Team Providers Care Airplane Cleaner Name Role Phone Jed Bustamante MD Primary Care Provider Encounter Details Date Type Department Care Team (Late st Contact Info) Description 12/26/2021 8:31 AM MARKET RESEARCH INTERN Anesthesia Event [facility] [address] [place] [id number] Jurgen Gtz MD [address] [facility] [address] [place] [address] Brandi Whitten, TAMMIE [address] [facility] [phone] [place] [address] Anesthesia Record Procedure Summary Procedure Name Responsible Anesthesiologist Anesthesia Start Time Anesthesia Stop Time RIGHT KNEE ARTHROSCOPY, RESECTION PLICA (Right: Knee) Jurgen Gtz MD 12/26/21 0831 12/26/21 0920 Events Date Time Event Comment 12/26/2021 0736 AN Equip Check 0751 0831 An Start 0835 In Room 0835 An Start Data 0840 An Induction The patient was reevaluated immediately before moderate or deep sedation use and before anesthesia induction. 0841 An LMA 0843 Anesthesia Ready 0852 Proc Start 0852 Incision Start 0910 Proc Fin 0916 Airway Removed 0917 an stop data 0917 Out of Room 0920 Handoff to RN I completed my handoff to the receiving nurse during which we: 1. Patient identified 2. Responsible provider identified 3. Pertinent medical history reviewed 4. Procedure type and surgical course discussed 5. Intraoperative anesthetic management and any significant issues discussed 6. Expectations and concerns for postop period discussed 7. Questions solicited from receiving nurse 8. Patient disposition at the time of handoff: No value filed. 0920 An Stop 1000 Release from care Meds Name Total midazolam 2 mg/2 mL 2 mg fentaNYL PF 50 mcg Lidocaine IV 1% 40 mg propofol 160 mg ondansetron PF 4 mg ketorolac 30 mg dexamethasone 4 mg/mL 4 mg Lactated Ringer's (LR) infusion 800 mL * Agents Name O2 Sevoflurane Inspired Sevoflurane * Blood No blood administrations on file. Lines, Drains, and Airways Type Details Placement Removal Peripheral IV Placement Date: 12/26/21; Placement Time: 075; Catheter Size: 22 G; Orientation: Left, Posterior; Location: Hand; Site Prep: Chlorhexidine; Insertion Attempts: 1; Patient Tolerance: Tolerated well 12/26/21 0756 by Ana Stern, HARDIK Supraglottic Airway Placement Date: 12/26/21; Placement Time: 0844 (created via procedure documentation); Mask Ventilation: 0; Size: 4; Insertion Attempts: 1; Removal Date: 12/26/21; Removal Time: 0916 12/26/21 0844 by Kirsten Finnegan CRNA 12/26/21 0916 by Kirsten Finnegan CRNA RETIRED Surgical Site 12/26/21; 0901; Right; Leg; Right Knee; 09/19/24 (Retired LDA, Removed/Completed by [facility] with LDA Utility); 1213 (Retired LDA, Removed/Completed by [facility] with LDA Utility) 12/26/21 0901 by Haily Rod RN 09/19/24 1213 by Discharge Provider, Automatic documented in this encounter Social History Tobacco Use Types Packs/Day Years [...] on file Legal Sex Female 7:21 PM MARKET RESEARCH INTERN Gender Identity Not on file Sexual Orientation Not on file documented as of this encounter OR Notes * Anesthesia Postprocedure Evaluation - Jurgen Gtz MD - 12/26/2021 10:00 AM CST Patient: Dm Burgess Procedure Summary Date: 12/26/21 Room / Location: [facility]PER[facility] 2 / [facility] Anesthesia Start: 830 Anesthesia Stop: 919 Procedure: RIGHT KNEE ARTHROSCOPY, RESECTION PLICA (Right Knee) Diagnosis: Complex tear of medial meniscus of right knee as current injury, subsequent encounter (Complex tear of medial meniscus of right knee as current injury, subsequent encounter [S83.231D]) Providers: Dwaine Macias IV, MD Responsible Provider: Jurgen Gtz MD Anesthesia Type: general ASA Status: 1 Anesthesia Type: general Last vitals BP (!) 92/44 Pulse 64 Temp 37.2 ??C (99 ??F) (Temporal) Resp 13 SpO2 98% Anesthesia Post Evaluation Patient location during evaluation: PACU Patient participation: complete - patient participated Level of consciousness: fully awake Pain score: 0 Pain management: adequate Airway patency: adequate Evidence of recall: no Cardiovascular status: hemodynamically stable and acceptable Respiratory status: acceptable and room air Hydration status: acceptable Pt is: normothermic Nausea/Vomiting status: none No complications documented. ET RESEARCH INTERN * Anesthesia Procedure Notes - Kisrten Finnegan CRNA - 12/26/2021 8:44 AM CSTAssociated Order(s): Airway Airway Patient location: OR Urgency: elective Indications for airway management: anesthesia Difficult airway: no Emergent airway documentation: Risks and benefits discussed: yes Consent obtained: yes Consent given by: patient Airway prep: Preoxygenated: yes Mask difficulty assessment: 0 - not attempted Spontaneous ventilation during airway: absent Sedation level during airway: GA Final airway details: Final airway type: supraglottic airway Final supraglottic airway: [place] SGA size: 4 Number of attempts: 1 Ventilation between attempts: none ET RESEARCH INTERN * Anesthesia Preprocedure Evaluation - Jurgen Gtz MD - 12/22/2021 4:33 PM CST Images from the original note were not included. [facility] for Preoperative Assessment and Planning Preoperative Evaluation Record Evaluation type/location: [facility]AP from [facility] Planned procedure site: [facility] OR Date: 12/22/21 NOTE: This note represents a preoperative evaluation initiated via telephone interview. NO PHYSICALEXAM was performed at the time of initial assessment. A physical exam may be added to this note anddocumented below. Anesthesia Evaluation Dm Burgess is a 16 y.o. female Procedure(s): RIGHT KNEE ARTHROSCOPY - PARTIAL MEDIAL MENISCECTOMY Pre-Op Diagnosis Codes: * Complex tear of medial meniscus of right knee as current injury, subsequent encounter [S83.231D] HISTORY HPI 16 year old female presenting for right knee arthroscopy partial medial meniscectomy for Complex tear of medial meniscus of right knee with no significant medical history Past Medical History Information obtained from: patient. Neurological Pertinent negatives: neuromuscular disease; CVA/stroke and TIA Cardiovascular Pertinent negatives: hypertension ; CAD ; [place] ; CABG ; valvular heart disease; atrial fibrillation; pacemaker/ICD; DVT/PE; negative for CHF; drug-eluting stent(s) and bare metal stent(s) Respiratory Pertinent negatives: COPD; sleep apnea (ROSELYN); pulmonary hypertension; no O2 use outside the hospital and non-smoker Hepatic / Heme Pertinent negatives: liver disease Renal / Pertinent negatives: renal disease and dialysis Endocrine / Other Pertinent negatives: diabetes mellitus; thyroid disease; cancer history; transplanted organ and infectious disease Functional Capacity Functional capacity: 4-6 METs Comments: States able to climb two flights of stairs at moderate pace without SOB or chest pain. Day of Surgery assessments + Possibility of assessed (last menses 12/08/21) Review of Systems Pertinent negatives: productive cough; SOB; recent cold/flu; fever; chest pain; orthopnea; PND; previous transfusion; bleeding problems and syncope PAT Summary and Plans Additional comments: Dm Burgess is a 16 y.o. female who is being evaluated prior to undergoing a low cardiac risk surgery. Revised Cardiac Risk Index factors are (none) for a total RCRI of 0 out of 6. Functional capacity is 4-6 METs. Patient's COVID19 status is: Unexposed. The patient currently has no concerning symptoms of COVID19. . Patient's COVID-19 vaccination status is Not vaccinated. . Plan for pre-procedure COVID19 testing: Telephone assessment performed. pre- procedure COVID19 testing to be performed closer to home. RN sent EPIC message to surgeon. PRELIMINARY: Obstructive sleep apnea (ROSELYN) screening status is STOP-Bang=0 suggesting low risk for ROSELYN. Blood bank needs for day of procedure: No type and screen needed Pending labs/tests include: N/A This assessment was performed via telephone. Therefore the physical exam has been deferred to the day of surgery team. The patient was provided with preoperative instructions for their medications. The patient was instructed to shower/bathe the night prior and the morning of the planned procedure using an antibacterial soap. Patient instructions were provided by telephone and MyChart. Patient verbalized understanding of preoperative plan. Preoperative evaluation performed by Brandi Whitten NP on 12/22/21 at 4:37 PM. TPAP Assessment complete . Patient Active Problem List Diagnosis ??? Chronic pain of right knee ??? Complex tear of medial meniscus of right knee as current injury ??? Tear of medial meniscus of right knee, current Past Medical History: Diagnosis Date ??? Motion sickness History reviewed. No pertinent surgical history. OB History No obstetric history on file. Allergies Allergen Reactions ??? Penicillins Rash Med List Status: Nurse Complete Set By: Silverio Hollins RN at 12/22/2021 12:07 PM Taking? Last Dose Start Date End Date Provider ibuprofen (ibuprofen) 200 mg tab/cap 12/21/2021 -- -- Mady Puente MD Vienva 0.1-20 mg-mcg per tablet 12/21/2021 11/12/21 -- ProviderMady MD No current facility-administered medications for this encounter. Current Outpatient Medications: ??? ibuprofen (ibuprofen) 200 mg tab/cap ??? Vienva 0.1-20 mg-mcg per tablet Social History Tobacco Use Smoking Status Never Smoker Smokeless Tobacco Never Used Substance and Sexual Activity Alcohol Use Not on file Substance and Sexual Activity Drug Use Never Family History Problem Relation Age of Onset ??? Anesthesia problems Neg Hx There were no vitals filed for this visit. PT: No results found for requested labs within last 720 hours. INR: No results found for requested labs within last 720 hours. APTT: No results found for requested labs within last 720 hours. Hgb A1C: No results found for requested labs within last 720 hours. CBC RBC: No results found for requested labs within last 720 hours. RDW: No results found for requested labs within last 720 hours. MCHC: No results found for requested labs within last 720 hours. MCH: No results found for requested labs within last 720 hours. MCV: No results found for requested labs within last 720 hours. Hct: No results found for requested labs within last 720 hours. Hgb: No results found for requested labs within last 720 hours. WBC: No results found for requested labs within last 720 hours. MPV: No results found for requested labs within last 720 hours. Platelets: No results found for requested labs within last 720 hours. RDW CV: No results found for requested labs within last 720 hours. RDW Sd: No results found for requested labs within last 720 hours. BMP Glucose: No results found for requested labs within last 720 hours. Calcium: No results found for requested labs within last 720 hours. Sodium: No results found for requested labs within last 720 hours. Potassium: No results found for requested labs within last 720 hours. CO2: No results found for requested labs within last 720 hours. Chloride: No results found for requested labs within last 720 hours. BUN: No results found for requested labs within last 720 hours. Creatinine: No results found for requested labs within last 720 hours. Eren index score: 100 DOS Physical Exam Medical history, medications, and allergies reviewed. Attestation: This PAT evaluation 12/26/2021. Airway Exam: Mallampati: II Cervical ROM: FROM Cardiovascular Exam: Rate: regular Rhythm: regular Pulmonary Exam: LCTA, bilat Anesthesia Plan ASA 1 My patient is approved for the Anesthesia Controlled Medication protocol when under care of a TERMITE CONTROL SERVICE REPRESENTATIVE Planned anesthesia: General Team communication plan: LMA Informed Consent: Anesthesia plan and risks discussed with patient. Consent and Attending signature: I and/or my designee have discussed the anesthesia plan, benefits, possible alternatives, parental presence at time of induction (if indicated), and clinically relevant risks that may include dental injury, unintentional awareness, and/or other complications. The patient and/or parent/legal guardian understand, and agree to proceed. All questions answered. ET RESEARCH INTERN ET RESEARCH INTERN documented in this encounter Plan of Treatment Not on file documented as of this encounter Procedures Procedure Name Priority Date/Time Associated Diagnosis Comments UT AN PROCEDURE PLACEHOLDER Routine 12/26/2021 8:44 AM MARKET RESEARCH INTERN UT AN ELECTIVE SUPRAGLOTTIC AIRWAY Routine 12/26/2021 8:44 AM MARKET RESEARCH INTERN documented in this encounter Results * UT AN ELECTIVE SUPRAGLOTTIC AIRWAY, UT AN PROCEDURE PLACEHOLDER (12/26/2021 8:44 AM MARKET RESEARCH INTERN) Narrative Kirsten Finnegan CRNA - 12/26/2021 8:44 AM MARKET RESEARCH INTERN Kirsten Finnegan CRNA ? 12/26/2021 ??8:44 AM Airway Patient location: OR Urgency: elective Indications for airway management: anesthesia Difficult airway: no Emergent airway documentation: Risks and benefits discussed: yes Consent obtained: yes Consent given by: patient Airway prep: Preoxygenated: yes Mask difficulty assessment: 0 - not attempted Spontaneous ventilation during airway: absent Sedation level during airway: GA Final airway details: Final airway type: supraglottic airway Final supraglottic airway: [place] SGA size: 4 Number of attempts: 1 Ventilation between attempts: none us Jurgen Gtz MD ANESTHESIA ORDERABLES Final Re sult documented in this encounter Visit Diagnoses Not on filedocumented in this encounter Administered Medications Inactive Administered Medications - up to 3 most recent administrations Medication Order MAR Action Action Date Dose Rate Site dexAMETHasone (DECADRON) 4 mg/mL injection intravenous, Administer over 2 Minutes, As needed, Starting on Wed12/26/21 at 0842, Anesthesia Intra-op Given 12/26/2021 8:42 AM MARKET RESEARCH INTERN 4 mg fentaNYL (SUBLIMAZE) preservative free injection intravenous, As needed, Starting on Wed12/26/21 at 0831, Anesthesia Intra-op Given 12/26/2021 8:53 AM MARKET RESEARCH INTERN 25 mcg Given 12/26/2021 8:31 AM MARKET RESEARCH INTERN 25 mcg ketorolac (TORADOL) 30 mg/mL (1 mL) injection intravenous, As needed, Starting on Wed12/26/21 at 0906, Anesthesia Intra-op Given 12/26/2021 9:06 AM MARKET RESEARCH INTERN 30 mg Lactated Ringer's (LR) infusion 30 mL/hr, intravenous, Continuous, Starting on Wed12/26/21 at 0815, Use a 500 ml bag for End Stage Renal Disease Patients Restarted 12/26/2021 9:05 AM MARKET RESEARCH INTERN Rate/Dose Verify 12/26/2021 8:31 AM MARKET RESEARCH INTERN 30 mL/h r New Bag 12/26/2021 7:56 AM MARKET RESEARCH INTERN 30 mL/hr 30 mL/hr lidocaine PF (XYLOCAINE) 10 mg/mL (1 %) preservative free injection intravenous, As needed, Starting on Wed12/26/21 at 0840, Anesthesia Intra-op Given 12/26/2021 8:40 AM MARKET RESEARCH INTERN 40 mg midazolam (VERSED) 1 mg/mL injection intravenous, As needed, Starting on Wed12/26/21 at 0831, Anesthesia Intra-op Given 12/26/2021 8:31 AM MARKET RESEARCH INTERN 2 mg ondansetron (ZOFRAN) injection intravenous, Administer over 2 Minutes, As needed, Starting on Wed12/26/21 at 0842, Anesthesia Intra-op Given 12/26/2021 8:42 AM MARKET RESEARCH INTERN 4 mg propofoL (DIPRIVAN) 10 mg/mL IV intravenous, As needed, Starting on Wed12/26/21 at 0840, Anesthesia Intra-op Given 12/26/2021 8:40 AM MARKET RESEARCH INTERN 160 mg documented in this encounter Care Teams Airplane Cleaner Relationship Specialty Start Date End Date Jed Bustamante MD [address] [place] [id number] PCP - General Pediatrics 10/21/21 documented as of this encounter
--- OUTSIDE RECORDS SUMMARY | 2024-10-04 05:23 | XMS_ITS | Encounter Summary ---
Author Organization [facility] Healthcare Address [address] [place] [id number] Care Team Providers Care Reception Name Role Phone Jed Bustamante MD Primary Care Provider Encounter Details Date Type Department Care Team (Latest Contact Info) Description 12/26/2021 7:13 AM PRODUCT ADVISOR - 12/26/2021 10:35 AM PRODUCT ADVISOR Hospital Encounter [facility] [address] [place] [id number] Dwaine Macias IV, MD [address] [place] [address] [address] [place] [address] Discharge Disposition: Discharge to home or self [...] on file Legal Sex Female 7:21 PM PRODUCT ADVISOR Gender Identity Not on file Sexual Orientation Not on file documented as of this encounter Last Filed Vital Signs Vital Sign Reading Time Taken Comments Blood Pressure 116/74 12/26/2021 10:20 AM PRODUCT ADVISOR Pulse 52 12/26/2021 10:25 AM PRODUCT ADVISOR Temperature 36.4 ??C (97.5 ??F) 12/26/2021 1 0:20 AM PRODUCT ADVISOR Respiratory Rate 14 12/26/2021 10:2 5 AM PRODUCT ADVISOR Oxygen Saturation 100% 12/26/2021 10: 25 AM PRODUCT ADVISOR Inhaled Oxygen Concentration - - Weight 63.6 kg (140 lb 3.2 oz) 12/26/2021 7:19 A M PRODUCT ADVISOR Height 175.3 cm (5' 9 ) 12/26/2021 7:19 AM PRODUCT ADVISOR Body Mass Index 20.7 12/26/2021 7:19 AM PRODUCT ADVISOR Body Mass Index Percentile 39.97% 12/26/2021 7:1 9 AM PRODUCT ADVISOR Growth Chart: [facility] [place]NOTE 2[place] (Girls, 2- 20 Years) documented in this encounter Discharge Diagnoses Diagnosis Complex tear of medial meniscus, current injury, right knee, initial encounter - COMPLEX TEAR OF MEDIAL MENISCUS, CURRENT INJURY, RIGHT KNEE, INITIAL ENCOUNTER Exposure to other specified factors, initial encounter - EXPOSURE TO OTHER SPECIFIED FACTORS, INITIAL ENCOUNTER documented in this encounter Discharge Instructions * Discharge Instructions* Ashleigh Lema RN - 12/26/2021 9:44 AM PRODUCT ADVISOR Do not drive/operate heavy machinery for 24 hours. Do not make sign/authorize major decision for 24 hours. A responsible adult must be present for the first 24 hours after surgery. Have assistance with ambulation for first 24 hours after surgery UCT ADVISOR documented in this encounter Medications at Time of Discharge HYDROcodone-acetamin ophen (NORCO) 5-325 mg per tabletIndications:Pa in TAKE 1-2 TABLETS EVERY 6 HOURS NEEDED FOR PAIN 12 tablet 12/26/2021 ibuprofen (ADVIL,MOTRIN) 200 mg tab/cap Take 400 mg by mouth every 6 (six) hours as needed for pain meloxicam (MOBIC) 7.5 mg tablet Take 1 tablet (7.5 mg total) by mouth daily for 10 days 10 tablet 12/26/2021 ondansetron ODT (ZOFRAN-ODT) 4 mg disintegrating tablet Take 1 tablet (4 mg total) by mouth every 8 (eight) hours as needed for nausea or vomiting 12 tablet 12/26/2021 Vienva 0.1-20 mg-mcg per tabletIndications:Dy smenorrhea Take 1 tablet by mouth nightly 11/12/2021 documented as of this encounter Discharge Disposition Disposition Code Departure Means Destination Discharge to home or self care documented in this encounter H&P Notes * Lenka Sunshine, TAMMIE - 12/26/2021 7:23 AM CST Outpatient Pre-Procedure History and Physical Subjective Patient is a 16 y.o. female with chief complaint of right knee pain. Indication For Procedure: Pre-op Diagnosis * Complex tear of medial meniscus of right knee as current injury, subsequent encounter [S83.231D] Planned Procedure RIGHT KNEE ARTHROSCOPY - PARTIAL MEDIAL MENISCECTOMY (R) HPI: Past Medical History: Diagnosis Date ??? Motion sickness History reviewed. No pertinent surgical history. Medications Prior to Admission Medication Sig Dispense Refill Last Dose ??? ibuprofen (ADVIL,MOTRIN) 200 mg tab/cap Take 400 mg by mouth every 6 (six) hours as needed for pain 12/24/2021 at Unknown time ??? Vienva 0.1-20 mg-mcg per tablet Take 1 tablet by mouth nightly 12/25/2021 at Unknown time ??? HYDROcodone-acetaminophen (NORCO) 5-325 mg per tablet TAKE 1-2 TABLETS EVERY 6 HOURS NEEDED FOR PAIN 12 tablet 0 ??? meloxicam (MOBIC) 7.5 mg tablet Take 1 tablet (7.5 mg total) by mouth daily for 10 days 10 tablet 0 ??? ondansetron ODT (ZOFRAN-ODT) 4 mg disintegrating tablet Take 1 tablet (4 mg total) by mouth every 8 (eight) hours as needed for nausea or vomiting 12 tablet 0 Allergies Allergen Reactions ??? Penicillins Rash As a child and adult Social History Tobacco Use ??? Smoking status: Never Smoker ??? Smokeless tobacco: Never Used Substance Use Topics ??? Alcohol use: Not on file Social History Substance and Sexual Activity Drug Use Never Vitals: 12/22/21 1200 12/26/21 0719 12/26/21 0744 12/26/21 0745 BP: 109/65 BP Location: Left arm Patient Position: Sitting Pulse: 66 72 Resp: 18 Temp: 36.1 ??C (97 ??F) TempSrc: Temporal SpO2: 100% Weight: 59 kg (130 lb) 63.6 kg (140 lb 3.2 oz) Height: 175.3 cm (5' 9 ) 175.3 cm (5' 9 ) Review of Systems: Review of systems per HPI and otherwise all other systems are negative Physical exam: Lungs: clear to auscultation bilaterally Heart: regular rate and rhythm, S1, S2 normal, no murmur, click, rub or gallop Neurologic: Alert and oriented x4, grossly intact Urine hCG- NEG Lenka Sunshine NP Cosigned by Dwaine Macias IV, MD at 12/26/2021 8:10 AM PRODUCT ADVISOR UCT ADVISOR UCT ADVISOR documented in this encounter Miscellaneous Notes * Perioperative Nursing Note - Ashleigh Lema RN - 12/26/2021 9:19 AM PRODUCT ADVISOR Pt in bed in lowest position locked with both side rails up, nonslip socks applied, curtain open and patient near nurses station. Pt will not be left behind curtain alone. Pt assisted in all cares inrecovery. Babak score based on pre-op condition. 0940 Patient arousable, oral airway removed. Sitting up, tolerating po. Father called to bedside. Will care for patient x 24 hours. 1010 Pt and family verbalized understanding of D/C instructions. All questions answered. Pt stated pain and nausea tolerable for D/C. No changes since previous assessment. To prepare for D/C. For 24 hrs. After surgery and while on narcotics; no driving, drinking alcohol, operating power tools or hazardous machinery or signing legal documents. Remove Scopolamine patch within 72 hours. Dispose of patch in trash and wash hands well after handling it. Shahriar hose x 24- 48 hrs. To prevent blood clots. Ice pack given for home use. 1030 Denies nee dto void prior to discharge. UCT ADVISOR * Brief Op Note - Mamadou Gutierrez DO - 12/26/2021 8:52 AM CST Operative Progress Note Surgical Team: Surgeon(s) and Role: * Dwaine Macias IV, MD - Primary * Mamadou Gutierrez DO - Fellow Anesthesiologist: Jurgen Gtz MD BEHAVIORAL THERAPY COORDINATOR: Kirsten Finnegan CRNA Scale Attendant: Haily Rod RN Scale Attendant Relief: Jody Naranjo RN Scrub: Diana Ireland RN Heavy Equipment Service Manager: Hazel West NP DATE OF SURGERY : 12/26/2021 Preoperative Diagnosis: Pre-op Diagnosis * Complex tear of medial meniscus of right knee as current injury, subsequent encounter [S83.442D] Postoperative Diagnosis: Post-op Diagnosis * Complex tear of medial meniscus of right knee as current injury, subsequent encounter [H03.044D] Procedure(s): Procedure(s) (LRB): RIGHT KNEE ARTHROSCOPY, RESECTION PLICA (Right) Operative Findings: Medial plica Estimated Blood Loss: 20 mL Intraoperative Fluids: 800 mls Specimens: No specimen collected in procedure Implants: Nothing was implanted during the procedure Blood/Blood Products Transfused: 0 mls Complications: None Condition on Discharge from the operating room was stable Mamadou Gutierrez DO Date: 12/26/2021 Time: 9:14 AM No Resident involved on case Cosigned by Dwaine Macias IV, MD at 12/26/2021 9:20 AM PRODUCT ADVISOR UCT ADVISOR UCT ADVISOR * Perioperative Nursing Note - Ana Stern RN - 12/26/2021 7:37 AM PRODUCT ADVISOR Pt's father with pt and will care for pt for 24 hours post surgery. Crutches given, sized and pt. used them in pre-op. Verbalized feeling safe on them. Pt has ice packs for home post op use. UCT ADVISOR * Op Note - Dwaine Macias IV, MD - 12/26/2021 12:00 AM CST Preoperative Diagnosis Right knee medial meniscus tear. Postoperative Diagnosis Right knee pathologic plica. Procedure Right knee arthroscopic resection of plica. Surgeon Dr. Dwaine Macias. Call Center Representative Dr. Mamadou Gutierrez. Anesthesia General. IV Fluids 800 mL. EBL 20 mL. IV Antibiotics None. Drains None. Complications None. Disposition To the PACU in stable condition. Intraoperative Findings 5 degrees of hyperextension through 140 degrees of flexion symmetric with the contralateral side. 1A [place]. No varus or valgus instability at 0 and 30 degrees of flexion. Arthroscopic examination revealed no pathology in the suprapatellar pouch. Intact cartilage on the patella and trochlea. Therewas a large inflamed anteromedial plica abrading the joint. No pathology in the posterior medial gutter or lateral gutter. Medial compartment showed intact cartilage on the femur and tibia. The medial meniscus did not have an unstable tear. There was a small crack on the superior surface of the posterior horn, but it was not unstable in the joint. The periphery was intact. No ramp lesion. No roottear. ACL was intact in the notch. Intact articular and meniscal cartilage in the lateral compartment. Procedure Indications As outlined in my clinic note, the patient is an 16-year-old female who has had longstanding right knee pain that has failed appropriate nonoperative management. She was diagnosed with a medial meniscus tear. As outlined in my clinic note, she understands the indication for surgery, the risks and benefits, and wishes to proceed. I indicated her intraoperatively for resection of the pathologic plica to minimize her risk for postoperative pain, swelling and mechanical symptoms. Description Of Procedure The surgical site was signed in the preoperative holding area. The patient was then brought to the operating room and placed supine on the operating table. Preoperative antibiotics were given if indicated and adequate anesthesia was achieved. A nonsterile tourniquet was placed on the patient's thigh. Examination under anesthesia was performed and the findings were as previously indicated. The patient was then prepped and draped in the standard sterile surgical fashion. A surgical timeout was held to confirm the appropriate surgical site had been identified. Standard knee arthroscopy portals were made in the standard fashion. Inspection of the joint commenced and the findings were as previously indicated. I carefully assessed the meniscus. There was no tear. The entire meniscus was stable. There was no indication for a resection or a repair. Given the fact that a plica was the most likely cause of hersymptoms, and there was no indication for meniscal surgery, I left the medial meniscus alone. I then used a shaver to resect the plica until it was no longer abrading the joint. The case was then completed in the standard fashion. The fluid was compressed out of the joint and the arthroscopic equipment was removed. The portals were closed with sutures in a watertight fashion. The joint was then injected with a cocktail for analgesia. Wounds were cleaned and dried and a sterile surgical dressing was applied. The patient tolerated the procedure well and was transferred to the PACU in stable condition. The sponge, needle and instrument count were correct at the end of the case. I was present for and performed the entire case with the help of the assistants in the room. Job ID/VF Job ID: [id number] UCT ADVISOR * Pre-Procedure Instructions - Cora Pritchard RN - 12/25/2021 1:07 PM CST We are pleased that you and your doctor have chosen [facility] for your surgery. We hope the following information will help make your visit a pleasant one. The name of the building is [facility] in [place]. Directions to facility (address is [address] [place] [address], [address] [facility] exit. [place] [id number] When you enter the building, look directly to your left, you will see 2 glass double doors. These double doors say [address]. Go through those double doors and check in with the switchboard receptionist. Bring glass case Pt. Needs crutches and needs to learn how to use them. Bring pillows, leave in car. Patient has ice pack for home. Pt. Has Gel packs Will need Urine sample a.m. Of surgery. Please let the switchboard receptionist know if you need to empty your bladder when you arrive. Wear loose fitting clothes. Something with an elastic waist on the bottom, such as gym shorts or sweat pants depending on the weather. T-shirt on top or a shirt with a loose sleeve unless you are having shoulder surgery then wear a loose fitting button down shirt or a shirt that zips up the front. CPAP instructed pt.-->Nothing to eat or drink after midnight. No gum, no mints, no candy, no cough drops, CBD oil, no marijuana, no Chewing tobacco, or vaping. No ice or water. You may brush your teeth, just make sure you spit it all out. For medications that the Nurse Practitioner instructed you to take on the morning of surgery, take the medications with a few sips of water. Pt's. Abdirahman [phone] will be with patient and care for patient for the first 24 hours post-op. Pt. Instructed to arrive at 0715 for 0915 procedure. Procedure is scheduled for 3/4 hour(s). Explained to patient, if you develop any symptoms of fever, chills, headache, cough, sore throat, body aches or is exposed to anyone that has been diagnosed, tested or quarantined for the COVID-19 you will not be allowed to enter the building or to have your surgery per anesthesia's guidelines. Explained to patient that all patient's and visitor's will be screened at the front door upon entering the building. Explained to patient to please call the morning of surgery, any time after 5:30 a.m. if you or your caregiver develops any of these symptoms or is exposed to anyone that has been diagnosed, tested or quarantined for COVID-19. Pt. Reports understanding. Once your physician has completed your surgery, he will call your caregiver to notify them your surgery is complete, and you are heading to the Recovery room. Your caregiver will not be called back to be with you until you are awake and ready for discharge. The nurse who is caring for you will callyour caregiver to come back to be with you for discharge instructions. Explained to patient that the self-serve cafe is across the alvarado from the surgery center. Explainedto patient if their caregiver would like anything to eat or drink, they may bring their own or purchase it from the refreshment area. UCT ADVISOR * Pre-Procedure Instructions - Brandi Whitten NP - 12/22/2021 4:19 PM CST Center for Preoperative Assessment and Planning CPAP Clinic Location: [facility] The night before your surgery: * Do not eat anything after midnight the night before your procedure. The morning of your surgery: * You may have clear liquids on your surgery day. You must stop drinking two hours before you arrive to the surgery facility. Acceptable clear liquids include water, clear sports drinks, black coffee, or clear soda. DO NOT drink any milk, creamer, or alcohol. * Your surgeon's office may have provided additional instructions or restrictions. Please follow those instructions. ?? * You may brush your teeth and rinse your mouth out. * Do not glue your dentures. * Do not wear jewelry, body piercings, makeup, hairpins, false eyelashes or contact lenses to the hospital. * Leave any valuables at home or with your family. * If you are still having menstrual cycles, you should come with a full bladder on the morning of surgery in order to provide a urine sample. Outpatient Surgery: * You must have a responsible adult drive you home and stay with you for 24 hours after your surgery * You cannot be alone at home or in a hotel * Please call your surgeon's office if you do not have someone to drive you home and/or stay with you after surgery Instructions For Your Medications: Pre-Surgery Instructions: Medication Instructions ??? ibuprofen (ibuprofen) 200 mg tab/cap Take on day of surgery if needed unless otherwise instructed per surgeon ??? Vienva 0.1-20 mg-mcg per tablet Take night prior to procedure per usual schedule] General Instructions For Medications: ?? * You may continue your non-steroidal anti-inflammatory medication: Ibuprofen ?? For medications that you are instructed to take on the morning of surgery, take the medications with a few sips of water. ?? Stop all of these medications 7-14 days prior to your surgery: Vitamin E, Herbal medicines, DietPills ?? If you have pain, you may take tylenol (acetaminophen). Do not take more than 6 tablets or 3000 mg (3 g) within a 24 period. Call your surgeon and the CPAP clinic if any of the following happens before surgery: ?? Any changes in your health ?? You have a fever ?? You have any signs of an infection (chest, urinary tract or tooth) ?? You have been to the Emergency Room or were in the hospital ?? You have started taking any new medications ?? You have questions about a bowel prep or special diet before surgery ??? You have symptoms of COVID-19 such as a new or worsening cough, shortness of breath, fever, body aches, loss of taste or smell, diarrhea or vomiting, or sore throat. ??? You have a household contact with COVID-19. ??? You test positive for COVID-19. UCT ADVISOR * Perioperative Nursing Note - Silverio Hollins RN - 12/22/2021 12:11 PM PRODUCT ADVISOR [place] for Preoperative Assessment and Planning Perioperative Nursing Note Telephone Preoperative Evaluation ([facility]) - TELEPHONE ONLY, NO PHYSICAL EXAM Date: 12/22/21 Vitals: 12/22/21 1200 Weight: 59 kg (130 lb) Height: 175.3 cm (5' 9 ) CHEST CIRCUMFERENCE: Social History Tobacco Use Smoking Status Never Smoker Smokeless Tobacco Never Used Substance and Sexual Activity Drug Use Never Outpatient Medications Marked as Taking for the 12/26/21 encounter (Hospital Encounter) Medication Sig Dispense Refill ??? ibuprofen (ibuprofen) 200 mg tab/cap Take 400 mg by mouth every 6 (six) hours as needed for pain ??? Vienva 0.1-20 mg-mcg per tablet Take 1 tablet by mouth nightly Implants No active implants to display in this view. SKIN Piercings Remaining: No Wound (LDAs) Type of Wound (LDA): (none) SCREENINGS Eren index score: 100 NUTRITION PATIENT CARE PLANNING Advance Directives (For Healthcare) Have you reviewed your Advance Directive and is it valid for this stay?: Not applicable Advance Directive: Patient does not have advance directive, Patient would like information, Information provided Information Provided on Healthcare Directives: Yes Communication/Yarn Cleaner Needs Communication Needs: Glasses Patient's Preferred Language: Macedonian Is an interpreter translator needed? : No Assistive Devices/DME: Eyeglasses Discharge Planning Type of Residence: Private residence Living Arrangements: Friends (dorm at college) Support Systems: Parent Assistance Needed: Parents to provide discharge transportation Patient expects to be discharged to:: Private residence COVID Screening Covid-19 Screening In the last 10 days have you had any new or worsening cough, SOB, fever (>=100F), body aches, loss of taste or smell, diarrhea or vomiting, or sore throat?: No Have you had close contact with anyone with confirmed or suspected COVID-19 in the past 10 days?: No Do you live in or work in a congregate living facility (ex. assisted living/jail facility, shelter, senior living)?: No Have you tested positive for COVID-19 within the last 10 days?: No Have you previously tested positive for COVID-19? No Have you had a COVID -19 exposure within the past 14 days? No Were both or all people exposed wearing masks (cloth, isolation, surgical or N95)? N/A TESTING PLAN-See Instructions for plan We recommend you Self-Isolate after COVID Testing: Stay at home, if possible until your surgery date. Maintain a 6 foot distance from other people (social distancing). Avoid touching your eyes, nose and mouth with unwashed hands. Wash your hands often with soap and water for at least 20 seconds. Use an alcohol- based hand global professional that contains at least 60% alcohol if soap and water are not available. ADDITIONAL COMMENTS/ FOLLOW UP UCT ADVISOR * Pre-Procedure Instructions - Silverio Hollins RN - 12/22/2021 12:09 PM PRODUCT ADVISOR CENTER FOR PREOPERATIVE ASSESSMENT AND PLANNING (CPAP) PRE-SURGICAL NURSING INSTRUCTIONS Telephone Assessment General Information Discussed with Patient: 1. Surgery location provided to patient. 2. Arrival time and surgical time will be provided to the patient by their surgeon. 3. You should wear clothing that is clean, loose, comfortable and easy to get in and out of on the day of surgery. 4. You should leave your valuables and any jewelry at home. No metal or piercings are allowed in the operating room. 5. You should bring your insurance card, a photo ID (example: Anchor Operator's License) and a method of payment for any insurance copay, deductible or copay for discharge medications. 6. You should bring a complete, up-to-date list of all your medications on the day of surgery, including any over the counter medications or supplements you may take. 7. You should bring your Advanced Directive and/or Living Will with you on the day of surgery if you have not verified a copy is already in your Epic Chart. A Guide for Patients Having Surgery: Your Pathway to Excellent Care OUR GOAL IS TO PROVIDE YOU WITH EXCELLENT CARE Use this guide to learn about what you can do before, during and after surgery to help your recovery. You are the most important person on your health care team. By becoming informed and involved, you can contribute to the success of your surgery. ??? If your surgeon's directions are different than those in this guide, talk with your nurse or surgeon to confirm the information. ??? It is important that you understand how to take care of yourself at home after surgery. ??? Be sure to bring this guide with you on the day of surgery and take it home with you after surgery. ??? Write down questions for your nurse or surgeon on the last page of this booklet. Important pages to be reviewed BEFORE surgery: Page 1: QR codes for Surgery Center maps Page 3: Types of Anesthesia Page 5: Tips for the day & night before surgery Page 6: When to stop eating BEFORE surgery and examples of clear liquids Page 7-10: Preventing Infection: Chlorhexidine Gluconate (CHG) Bathing Instructions You may access A Guide for Patients Having Surgery: Your Pathway to Excellent Care by the followinglink: [email or web address] How To Prepare Your Skin For Surgery Below is the Pre-Surgical Bathing Protocol you should follow for your surgery. If your surgeon provides you different bathing instructions, please follow your surgeon's orders. 2 Day CHG Bathing Protocol (no nasal ointment) PREVENTING INFECTION (DECOLONIZATION): Decolonization is the use of a topical antiseptic soap and sometimes a nasal ointment to remove bacteria (germs) from the skin's surface. Antiseptic soap: Chlorhexidine gluconate or CHG (brand name: Hibiclens??) ??? Before surgery, your entire body must be thoroughly cleaned. CHG helps to reduce the bacteria on your skin. ??? You may be given one or more bottles of CHG or you may be asked to obtain from your preferred pharmacy. Be sure to ask your pharmacist if you need help finding this product. Nasal ointment: Mupirocin (brand name: Bactroban) ??? Your surgeon may also prescribe a topical ointment that is rubbed inside each of the nostrils to reduce the bacteria in your nose. ??? Mupirocin ointment requires a prescription. If needed, it will be prescribed by your surgeon and obtained from your preferred pharmacy. SHOWERING WITH ANTISEPTIC SOAP (CHG) What You Need For Each Shower ??? 60 mL (?? cup) of CHG ??? 2 clean washcloths CHG Bathing Instructions 1. First, shampoo and rinse your hair with your own shampoo (no conditioners). Do this so the antiseptic soap isn't washed off by your shampoo. 2. Wash face with warm water. 3. Turn off shower and stand away from the water. 4. Use 2 clean washcloths to apply the antiseptic soap to all areas as described below: Pour 30 mL (1/8 cup) of CHG on washcloth #1: Using washcloth- start at jawline and firmly massage the soap into the skin in a circular motion to clean neck, shoulders, chest, back, both armpits, arms, hands and abdomen. Finish with legs and feet. Pour 30 mL (1/8 cup) of CHG on washcloth #2: Using washcloth- firmly massage the soap into the skinin a circular motion to clean groin area, perineum and buttocks. (Do not use CHG on genital area.) Lawson Points: ??? The CHG antiseptic soap will not bubble or lather very much. ??? If you get soap in your eyes, ears or mouth, rinse well with cool water. ??? When finished, leave the soap on your skin for 2 minutes before rinsing. ??? Dry off with a clean fresh towel. ??? Wear clean clothes or pajamas to sleep in. ??? After showering DO NOT put on deodorant, hair products or conditioners, lotions or creams, powders, Vaseline or any non-essential products. ??? If you cannot reach the surgical site, such as the back, please have someone help you. Shaving: ??? You may shave your face, legs and underarms during your evening shower before you apply the CHGantiseptic soap. Be careful not to cut or priscila your skin. ??? Avoid shaving on the day of surgery. Deodorant: ??? Patients following the 5-Day CHG protocol may apply deodorant on the days leading up to surgery, being sure, however, to avoid use on the evening before and day of surgery. All other products should be avoided for the full 5 days. 2-Day CHG Bathing Protocol The Evening Before Surgery: Take a shower with Antiseptic soap (CHG). Follow the steps for ???Showering with Antiseptic Soap (CHG)?? above. ??? Change all linens on your bed so you are sleeping in clean fresh sheets and pillowcases. ??? Remove nail coverings, artificial nails and nail french. The Morning of Surgery: Take a shower with Antiseptic soap (CHG). Follow the steps for ???Showering with Antiseptic Soap (CHG)?? above. ??? Put clean clothes on after you shower. COVID TESTING PLAN: Please note, the below is the Pre-Procedure COVID Testing Plan for the [facility]. Surgeon's offices may require additional testing. If so, the surgeon's office will reach out to the patient to discuss further testing. Patient's COVID-19 vaccination status: Patient stated they are currently not COVID vaccinated. Patient has not received COVID Booster. COVID Test Plan: COVID Test unable to be set up by [facility] at this time related to patient unable to go to a [facility] Testing Site. In-basket Message sent to Surgeon's [employer] stating that patient is unable to go to [facility] Testing Site for COVID Test & surgeon's of marene needs to contact patient and set up COVID Test for patient. Patient is aware and has been notified to follow up with surgeon's office to get local COVID Testing set up. . If you are going to a [facility] Testing Site for COVID testing, please arrive at least 30 minutes PRIOR to lab closing time. If you have COVID testing or should have COVID testing for your surgery/procedure, please read below section: If you need to reschedule your COVID test to a different location or if your surgery gets rescheduled, you MUST call [phone] Wednesday-Wednesday 8am-4:30pm to get your COVID testing rescheduled or your lab order will not be available at Testing Sites. COVID Testing is only valid for up to 96 hours prior to surgery date, unless otherwise specified. If you are unable to reach staff at the above phone number, please call the [facility] Staff at [phone]. This number cannot order a lab test, but can attempt to contact the above number/staff to assist you. [facility] Staff are available Wednesday- Wednesday 8am-5pm. We recommend you Self-Isolate after COVID Testing: Stay at home, if possible, until your surgery date. Maintain a 6-foot distance from other people (social distancing) and wear a face mask if you areable. Avoid touching your eyes, nose and mouth with unwashed hands. Wash your hands often with soapand water for at least 20 seconds. Use an alcohol-based hand global professional that contains at least 60% alcohol if soap and water are not available. These are general guidelines, but if have been told by aphysician that you should not perform any of the above, please follow physician's guidelines. All patients should read below section: All visitors/patients are being asked to wear a clean face mask when entering the hospital. COVID 19 Updates & Visitor Policy: Please access [email or web address] for the most updated information. Information on [facility]: Please view [email or web address] (Patient & Visitor Information) for additional details regarding Advanced Directive forms, AWARE, directions, parking information, lodging, Internet access, dining and more. Information on [facility]: Please view [email or web address] (Patient and Visitor Information) for parking/directions and more. For MyChart information, to activate account or password recovery, please go to [email or web address] or call [phone] (toll-free: [phone]). Information for Suicide Prevention: National Suicide Prevention Lifeline (0-337- 834-YYEY (0674)). Surgery Times: For patients having [facility] @ [facility], if your surgeon's office has not notified you of your surgery time by NOON THE BUSINESS DAY BEFORE your surgery, please call the surgery center [phone]. UCT ADVISOR documented in this encounter Plan of Treatment Not on file documented as of this encounter Procedures Procedure Name Priority Date/Time Associated Diagnosis Comments ARTHROSCOPY KNEE MENISCAL DEBRIDEMENT 12/26/2021 8:35 AM PRODUCT ADVISOR Complex tear of medial meniscus of right knee as current injury, subsequent encounter POCT HCG, URINE Routine 12/26/2021 7:48 AM PRODUCT ADVISOR documented in this encounter Results * POCT hCG, urine (12/26/2021 7:48 AM PRODUCT ADVISOR) HCG, ur, POC Negative Lot Number 0 QC Backgroud Clear Acceptable QC Control Line Acceptable Urine 12/26/2021 7:48 AM PRODUCT ADVISOR Haily Huffman ELEVATOR SERVICEM[facility] POINT OF CARE TEST ORDERA BLES Final Result documented in this encounter Visit Diagnoses Diagnosis Complex tear of medial meniscus of right knee as current injury- Primary documented in this encounter Admitting Diagnoses Diagnosis Complex tear of medial meniscus of right knee as current injury documented in this encounter Administered Medications Inactive Administered Medications - up to 3 most recent administrations Medication Order MAR Action Action Date Dose Rate Site HYDROcodone-acetaminophen (NORCO) 5-325 mg per tablet 1 tablet 1 tablet, oral, Every 20 min PRN, 3rd line for pain, breakthrough pain, May give TWO doses at the same time for moderate to severe pain after consulting with Anesthesiologist., Starting on Wed12/26/21 at 0925, For 2 doses, Phase I, Indications: PainIndications:Pain Given 12/26/2021 10:04 AM PRODUCT ADVISOR 1 tablet Lactated Ringer's (LR) infusion 30 mL/hr, intravenous, Continuous, Starting on Wed12/26/21 at 0815, Use a 500 ml bag for End Stage Renal Disease Patients Restarted 12/26/2021 9:05 AM PRODUCT ADVISOR Rate/Dose Verify 12/26/2021 8:31 AM PRODUCT ADVISOR 30 mL/h r New Bag 12/26/2021 7:56 AM PRODUCT ADVISOR 30 mL/hr 30 mL/hr lidocaine PF (XYLOCAINE) 10 mg/mL (1 %) preservative free injection 2-10 mg 2-10 mg (0.2-1 mL), other, Once as needed, pain with IV placement, Starting on Wed12/26/21 at 0730, For 1 dose, Pre-Op, Administer volume needed to infiltrate IV site. Given 12/26/2021 7:57 AM PRODUCT ADVISOR 5 mg scopolamine patch 72 hour 1 patch 1 patch, transdermal, Administer over 72 Hours, Once, On Wed12/26/21 at 0815, For 1 dose, Pre-Op, Apply to beach-chair position shoulder surgery patients, and to patients with a history of PONV and/or Motion Sickness. Do NOT administer to patients with a history of BPH or Glaucoma. Consult Anesthesiologist with any questions. In case of urinary retention, remove patch immediately and clean patch site with alcohol., Indications: Motion Sickness, Prevention of Motion Sickness, Prevention of Post-Operative Nausea and VomitingIndications:Motion Sickness,Prevention of Motion Sickness,Prevention of Post-Operative Nausea and Vomiting Medication Applied 12/26/2021 8:03 AM PRODUCT ADVISOR 1 patch Behind Right Ear documented in this encounter Historical Medications * This list may reflect changes made after this encounter. ibuprofen (ADVIL,MOTRIN) 200 mg tab/cap Take 400 mg by mouth every 6 (six) hours as needed for pain Vienva 0.1-20 mg-mcg per tabletIndications :Dysmenorrhea Take 1 tablet by mouth nightly 11/12/2021 added in this encounter Active and Recently Administered Medications Times are shown in PRODUCT ADVISOR. Scheduled Medication Order 12/24/2021 12/25/2021 12/26/2021 scopolamine patch 72 hour 1 patch 1 patch, transdermal, Administer over 72 Hours, Once, On Wed12/26/21 at 0815, For 1 dose, Pre-Op, Apply to beach-chair position shoulder surgery patients, and to patients with a history of PONV and/or Motion Sickness. Do NOT administer to patients with a history of BPH or Glaucoma. Consult Anesthesiologist with any questions. In case of urinary retention, remove patch immediately and clean patch site with alcohol., Indications: Motion Sickness, Prevention of Motion Sickness, Prevention of Post-Operative Nausea and Vomiting 0803 (Medication Lisbeth lied - Provider: Ana Stern RN)1035 (Due: Medication Removed - Provider: Automatic Discharge Provider - Comment: Time automatically adjusted from order being discontinued) Continuous Medication Order 12/24/2021 12/25/2021 12/26/2021 Lactated Ringer's (LR) infusion 30 mL/hr, intravenous, Continuous, Starting on Wed12/26/21 at 0815, Use a 500 ml bag for End Stage Renal Disease Patients 0733 (Due)0756 (New Bag - Provider: Ana Stern RN)0815 (Due)0831 (Rate/Dose Verify - Provider: Kirsten Finnegan CRNA)0904 (Paused - Provider: Kirsten Finnegan CRNA - Comment: Switch to gravity)0905 (Restarted - Provider: Kirsten Finnegan CRNA)0919 (Stopped - Provider: Ashleigh Lema RN) Lactated Ringer's (LR) infusion 125 mL/hr, intravenous, Continuous, Starting on Wed12/26/21 at 1000, Phase I, 09 (Continued from OR - Provider: Ashleigh Lema, RN)1025 (Stopped - Provider: Ashleigh Lema RN) PRN Medication Order 12/24/2021 12/25/2021 12/26/2021 acetaminophen (TYLENOL) tablet 500 mg 500 mg, oral, Every 6 hours PRN, headaches, other, Breakthrough Pain and Supplement to other pain meds, Starting on Wed12/26/21 at 0925, Phase I, When able to tolerate PO after consulting with Anesthesiologist. Do not administer if patient already received Acetaminophen-containing medications in PACU., Indications: Pain bupivacaine (MARCAINE) 0.5 % (5 mg/mL) preservative free injection (CANCELED) As needed, Starting on Wed12/26/21 at 0906, Intra-Op 0906 (Given - Provid er: Dwaine Macias IV, MD) bupivacaine-EPINEPHrine (MARCAINE with EPI) 0.25 %-1:200,000 preservative free injection (CANCELED) As needed, Starting on Wed12/26/21 at 0853, Intra-Op 0853 (Given - Provid er: Dwaine Macias IV, MD) diphenhydrAMINE (BENADRYL) injection 12.5 mg 12.5 mg, intravenous, Administer over 1 Minutes, Every 5 min PRN, itching, other, For Nausea, administer 25 mg IV., Starting on Wed12/26/21 at 0925, For 4 doses, Phase I, Max cumulative dose 50 mg., Indications: Itching fentaNYL (SUBLIMAZE) preservative free syringe 25 mcg 25 mcg, intravenous, Every 5 min PRN, 1st line for pain, uncontrolled pain on PACU admission to PACU., Starting on Wed12/26/21 at 0925, For 4 doses, Phase I, Use as 1st line for very severe pain upon admission to PACU, dose not to exceed 100 mics. Then proceed to second line pain meds after consulting with anesthesiologist., Indications: Pain hydrALAZINE (APRESOLINE) injection 5 mg 5 mg, intravenous, Administer over 2 Minutes, Every 5 min PRN, high blood pressure, Starting on Wed12/26/21 at 0925, Phase I, Max cumulative dose 20 mg. Dose if systolic BP greater than 180 AND heart rate less than 70., Indications: hypertension HYDROcodone-acetaminophen (NORCO) 5-325 mg per tablet 1 tablet 1 tablet, oral, Every 20 min PRN, 3rd line for pain, breakthrough pain, May give TWO doses at the same time for moderate to severe pain after consulting with Anesthesiologist., Starting on Wed12/26/21 at 0925, For 2 doses, Phase I, Indications: Pain 1003 (Due)1004 (Give n - Provider: Ashleigh Lema RN) HYDROmorphone (DILAUDID) injection 0.2 mg 0.2 mg, intravenous, Administer over 2 Minutes, Every 5 min PRN, 2nd line for pain, breakthrough pain, Use as 2nd line pain med after consulting with anesthesiologist., Starting on Wed12/26/21 at 0925, For 5 doses, Phase I, Notify Anesthesiologist if total PACU dose reaches 1 mg, and pain score of 5/10 or higher, Indications: Chronic Pain with Opioid Tolerance, Severe Pain with Opioid Tolerance labetaloL (NORMODYNE,TRANDATE) injection 5 mg 5 mg, intravenous, Every 5 min PRN, high blood pressure, Starting on Wed12/26/21 at 0925, For 4 doses, Phase I, Max cumulative dose 20 mg. Dose if systolic blood pressure greater than 180 AND HR greater than 70. Lactated Ringer's (LR) irrigation (CANCELED) As needed, Starting on Wed12/26/21 at 0900, Intra-Op 0900 (Given - Provid er: Dwaine Macias IV, MD - Comment: Used PRN arthroscopic irrigation usage.) lidocaine PF (XYLOCAINE) 10 mg/mL (1 %) preservative free injection 2-10 mg (COMPLETED) 2-10 mg (0.2-1 mL), other, Once as needed, pain with IV placement, Starting on Wed12/26/21 at 0730, For 1 dose, Pre-Op, Administer volume needed to infiltrate IV site. 0757 (Given - Provid er: Ana Stern RN - Comment: injected prio to I V start (terrified of needles)) meperidine (DEMEROL) preservative free injection 12.5 mg 12.5 mg, intravenous, Administer over 5 Minutes, Every 10 min PRN, shivering, Starting on Wed12/26/21 at 0925, For 2 doses, Phase I, Max cumulative dose 25 mg., Indications: Shivering naloxone (NARCAN) 0.4 mg/mL injection 0.04-0.4 mg 0.04-0.4 mg, intravenous, Once as needed, other, excessive sedation/respiratory depression, Starting on Wed12/26/21 at 0925, For 1 dose, Phase I, Dilute 0.4 mg with 9 mL NS (final concentration 0.04 mg/mL). For respiratory depression (respiratory rate less than 6), administer 0.4 mg IVP over 30 seconds. For excessive sedation administer 0.04 mg (1 mL) every 1 minute until desired level of alertness. Consult with Anesthesiologist before administration. Administer 40 mics at a time. For IV, administer over 30 seconds., Indications: Opioid Toxicity ondansetron (ZOFRAN) injection 4 mg 4 mg, intravenous, Administer over 2 Minutes, Once as needed, nausea, vomiting, Starting on Wed12/26/21 at 0925, For 1 dose, Phase I, Proceed to prochlorperazine if ondansetron has been given within the last 6 hours. prochlorperazine (COMPAZINE) injection 5 mg 5 mg, intravenous, Every 10 min PRN, nausea, vomiting, Check with Anesthesiologist before administring, and ask about IV versus IM., Starting on Wed12/26/21 at 0925, For 2 doses, Phase I, If nausea/vomiting not relieved by ondansetron within 30 minutes or if ondansetron has been given within the last 6 hours. sodium chloride 0.9% flush 0.5-20 mL 0.5-20 mL, intra-catheter, As needed, line care, Flush Dav Block Hep Locks to keep vein open., Starting on Wed12/26/21 at 0730, Pre-Op, Flush volume based on line type and size. Flush before and after each use. , Indications: Flushing documented in this encounter Orders Medications Ordered That Sy ht Not Have Been Administered Count Last Ordered Date First Ordered Date acetaminophen (TYLENOL) tablet 500 mg 1 08/2022 bupivacaine (MARCAINE) 0.5 % (5 mg/mL) preservative free injection 12/26/2021 bupivacaine-EPINEPHrine (MAR ZAK with EPI) 0.25 %-1:200,000 preservative free injection 1 12/26/2021 diphenhydrAMINE (BENADRYL) i njection 12.5 mg 1 12/26/2021 fentaNYL (SUBLIMAZE) preserv ative free syringe 25 mcg 1 12/26/2021 hydrALAZINE (APRESOLINE) injection 5 mg 1 0 12/26/2021 HYDROmorphone (DILAUDID) injection 0.2 mg 1 12/26/2021 labetaloL (NORMODYNE,TRANDAT E) injection 5 mg 1 12/26/2021 Lactated Ringer's (LR) infusion 1 Lactated Ringer's (LR) irrigation 1 022 meperidine (DEMEROL) preserv ative free injection 12.5 mg 1 12/26/2021 naloxone (NARCAN) 0.4 mg/mL injection 0.04-0.4 mg 1 12/26/2021 ondansetron (ZOFRAN) injection 4 mg 1 12/26 prochlorperazine (COMPAZINE) injection 5 mg 1 12/26/2021 sodium chloride 0.9% flush 0.5-20 mL 1 12/16 Diet Count Last Ordered Date First Orde red Date ADULT DISCHARGE DIET 1 12/26/2021 Nursing Count Last Ordered Date First Orde red Date ACTIVITY 2 12/26/2021 APPLY ICE TO AFFECTED AREA 1 12/26/2021 DISCHARGE INSTRUCTIONS 6 12/26/2021 ELEVATE EXTREMITY 1 12/26/2021 NURSING COMMUNICATION 3 12/26/2021 PATIENT MAY SHOWER 1 12/26/2021 WOUND CARE 3 12/26/2021 documented in this encounter Care Teams Reception Relationship Specialty Start Date End Date Jed Bustamante MD [id number] [address] [place] [id number] PCP - General Pediatrics 10/21/21 documented as of this encounter
--- OUTSIDE RECORDS SUMMARY | 2024-10-04 05:23 | XMS_ITS | Encounter Summary ---
Author Organization [facility] Address [address] [place] [address] Phone Care Team Providers Care Vp Cardiovascular Name Role Phone Jed Bustamante MD Primary Care Provider Reason for Visit * Reason Comments Pain * Consultation (Routine) - Closed Specialty Diagnoses / Procedures Referred By Contac t Referred To Contact Pediatric Orthopedic Surgery Diagnoses Right knee pain, unspecified chronicity Jed Bustamante MD [address] [facility] [place] [address] Phone: tel: fax: [facility] (All Locations) Referral ID Status Reason Start Date Expiration Date V isits Requested Visits Authorized [id number] Closed Specialty Services Required 11/25/2021 12/25/2022 1 1 Encounter Details Date Type Department Care Team (Late st Contact Info) Description 12/15/2021 9:20 AM STONEMASON Office Visit [facility] Orthopaedic Surgery [address] [facility] 12th [place] [address] [place] [address] [place] [address] [place] [address] Other tear of medial meniscus of right knee as current injury, initial encounter (Primary Dx); Chronic pain of right knee Social History Tobacco Use Types Packs/Day Years Used Date Smoking Tobacco: Never Smokeless Tobacco: Never Comments Unknown Sex and Gender Information Value Date Recorded Sex Assigned at Not on file Legal Sex Female 7:21 PM STONEMASON Gender Identity Not on file Sexual Orientation Not on file documented as of this encounter Last Filed Vital Signs Vital Sign Reading Time Taken Comments Blood Pressure - - Pulse - - Temperature - - Respiratory Rate - - Oxygen Saturation - - Inhaled Oxygen Concentration - - Weight 59 kg (130 lb) 12/15/2021 9:23 AM STONEMASON Height 175.3 cm (5' 9 ) 12/15/2021 9:23 AM STONEMASON Body Mass Index 19.2 12/15/2021 9:23 AM STONEMASON Body Mass Index Percentile 19.59% 12/15/2021 9:2 3 AM STONEMASON Growth Chart: [facility] (Girls, 2- 20 Years) documented in this encounter Progress Notes * Dwaine Macias IV, MD - 12/15/2021 9:20 AM CST Images from the original note were not included. CHIEF COMPLAINT Right knee pain for 1.5 years HISTORY 16-year-old female that is here today for evaluation of chronic atraumatic right knee pain. She hashad pain for 1 and half years. She has also had intermittent effusions. She denies any specific injury and she has no history of surgery to this knee. She plays volleyball and this has been persistently limiting for her. The pain is sharp and moderate. Pain is located primarily in the anterior and m edial aspect of the knee but she also has some posteriorly based pain. Pain is worse with activity.Pain is better with rest. She also endorses mechanical symptoms of her knee being locked in extension and her having to wait for it to release before she can bend it. She has done physical therapy with her athletic instructor for many months without substantial relief. Her only sport is volleyball andshe is currently out of season. She has taken occasional ibuprofen which seems to help some. She ishere for evaluation and treatment with her dad The patient was referred to see me by Shahriar Ritchie MD. PAST MEDICAL HISTORY She has no past medical history on file. PAST SURGICAL HISTORY She has no past surgical history on file. INITIAL REVIEW OF MEDICATIONS She currently has no medications in their medication list. DRUG ALLERGIES She is allergic to penicillins. SOCIAL HISTORY She reports that she has never smoked. She has never used smokeless tobacco. FAMILY HISTORY Her family history is not on file. REVIEW OF SYSTEMS Review of symptoms were filled out by the patient on the enclosed intake form, which was reviewed and signed by me. PHYSICAL EXAMINATION The patient is a pleasant female in no acute distress. Height: 5 ft, 9 in, Weight: 130 lb. Alert and oriented x3. Respirations are regular and without distress. Hearing intact to the spoken word. Ambulates with a normal gait. Right knee - mild pain with squat test and with Thessaly. Left knee - No pain with squat test, no pain with Thessaly. Right knee - Skin is intact. No incisions. No erythema, edema, ecchymosis. Trace effusion. Left knee - Skin is intact. No incisions. No erythema, edema, ecchymosis or effusion. Right knee - Medial and lateral joint line tenderness. She also has tenderness to palpation over the quad insertion on the patella and throughout the patellar tendon. Left knee - No joint line or other tenderness. Right knee -0 to 130 degrees of flexion. Positive crepitus. Mild pain with hyperflexion. No pain with hyperextension. Left knee - 0 to 130 degrees of flexion. No crepitus. No pain with hyperflexion or hyperextension. Right knee - medial pain with flexion compression. Left knee - no pain with flexion compression. Right knee - 1A Savannah, 1A anterior drawer, 1A posterior drawer. Stable to varus and valgus stressat 0 and 30 degrees of flexion. Left knee - 1A Savannah, 1A anterior drawer, 1A posterior drawer. Stable to varus and valgus stress at 0 and 30 degrees of flexion. Right lower extremity - Intact light touch over the lateral thigh, medial and lateral leg, dorsum of the foot, including first web space, and plantar aspect of the foot. 5/5 tib ant, EHL, and gastrocsoleus strength bilaterally. Palpable posterior tib pulse with regular rate and rhythm. Left lower extremity - Intact light touch over the lateral thigh, medial and lateral leg, dorsum ofthe foot, including first web space, and plantar aspect of the foot. 5/5 tib ant, EHL, and gastrocsoleus strength bilaterally. Palpable posterior tib pulse with regular rate and rhythm. REVIEW OF X-RAYS/STUDIES I independently reviewed three plain films of the right knee, including bilateral Merchant and Carvajal views, taken today which show no significant degenerative change or fracture. I independently reviewed her right knee MRI without contrast from 11/08/2021. She has a horizontal tear of her medial meniscus. Her ACL, PCL, and collateral ligaments are intact. There is no significant chondrosis. No other obvious intra-articular derangement ASSESSMENT Right knee pain and swelling for year and a half which has not responded to appropriate non operative management with a medial meniscus tear TREATMENT/PLAN Given the fact that her symptoms have persisted for a year and a half despite appropriate non operative management, I would recommend consideration of arthroscopic partial medial meniscectomy at thistime. I explained what would be involved in the surgery and recovery. I explained it would be an outpatient procedure. The patient would come in and go home the same day. I recommend [id number] for2 days and then gradual return to full weight bearing but taking it easy for 2 weeks. I will see the patient back in the clinic at about 2 weeks where I would check the wounds, go over the arthroscopic pictures, and assess progress. At that time I usually recommend an exercise bike plus or minus some physical therapy for the next 4 weeks. I usually see the patient back about 6 weeks after surgery. I explained many people have approached full recovery by that time although it can take 2-3 monthsto reach a full recovery from the surgery. I discussed the risk and benefits of the surgery including but not limited to the risk of infection, risk of anesthesia, risk of blood clot, risk of nerve and blood vessel injury, risk of limited, delayed or short lasting improvement in symptoms, and risk for progression of osteoarthritis not offset the surgery itself. The patient appears to understand the injury, treatment alternatives, indications for surgery, risks and benefits, and what is involvedin the recovery and wishes to proceed. We can schedule surgery at their convenience. I would be careful with the knee in the interim. The patient had all questions answered and appears comfortable with this plan going forward. I was present for the critical portion of the history and physical examination. All radiographic studies were personally interpreted by me and I determined the diagnosis and treatment plan and communicated them to the patient. Dwaine Macias MD Professor Sports Medicine [facility] Dictated using MModal Fluency Direct. Hot Tamale Worker variations may occur. EMASON documented in this encounter Plan of Treatment Not on file documented as of this encounter Visit Diagnoses Diagnosis Other tear of medial meniscus of right knee as current injury, initial encounter- Primary Chronic pain of right knee documented in this encounter Orders Outpatient Referral Count Last Ordered Date Fir st Ordered Date AMB REFERRAL TO PEDIATRIC ORTHOPEDICS 1 documented in this encounter Care Teams Vp Cardiovascular Relationship Specialty Start Date End Date Jed Bustamante MD [address] [facility] [address] [address] [place] [address] PCP - General Pediatrics 10/21/21 documented as of this encounter
--- OUTSIDE RECORDS SUMMARY | 2024-10-04 05:23 | XMS_ITS | Encounter Summary ---
Author Organization [facility] Address [address] [place] [address] Phone Care Team Providers Care Area Manager Name Role Phone Jed Bustamante MD Primary Care Provider Reason for Referral * MRI/CAT/PET Scan (Routine) - Closed Specialty Diagnoses / Procedures Referred By Ashly barraza Referred To Contact Radiology Diagnoses Chronic pain of right knee Procedures MRI Knee Right WO Contrast Shahriar Ritchie MD Phone: tel: fax: [place] [address] [address] [place] [address] Referral ID Status Reason Start Date Expiration Date Visits Re quested Visits Authorized [id number] Closed 10/28/2021 11/27/2022 1 1 KEAG OPERATOR * Diagnostic Imaging (Routine) - Closed Specialty Diagnoses / Procedures Referred By Ashly barraza Referred To Contact Diagnoses Chronic pain of right knee Procedures XR Knee Right 4+ View Shahriar Ritchie MD Phone: tel: fax: [facility] Referral ID Status Reason Start Date Expiration Date Visits Re quested Visits Authorized [id number] Closed 10/28/2021 11/27/2022 1 1 KEAG OPERATOR Reason for Visit * Reason Comments Pain Encounter Details Date Type Department Care Team (Late st Contact Info) Description 10/28/2021 2:30 PM NAUMKEAG OPERATOR Office Visit [facility] Orthopaedic Surgery [address] [facility] 1st [address] [place] [address] Shahriar Ritchie MD [address] [place] [address] Chronic pain of right knee (Primary Dx) Social History Tobacco Use Types Packs/Day Years Used Date Smoking Tobacco: Never Smokeless Tobacco: Never Comments Unknown Sex and Gender Information Value Date Recorded Sex Assigned at Not on file Legal Sex Female 7:21 PM NAUMKEAG OPERATOR Gender Identity Not on file Sexual Orientation Not on file documented as of this encounter Last Filed Vital Signs Vital Sign Reading Time Taken Comments Blood Pressure - - Pulse - - Temperature - - Respiratory Rate - - Oxygen Saturation - - Inhaled Oxygen Concentration - - Weight 59 kg (130 lb) 10/28/2021 3:26 PM NAUMKEAG OPERATOR Height 175.3 cm (5' 9 ) 10/28/2021 3:26 PM NAUMKEAG OPERATOR Body Mass Index 19.2 10/28/2021 3:26 PM NAUMKEAG OPERATOR Body Mass Index Percentile 19.98% 10/28/2021 3:2 6 PM NAUMKEAG OPERATOR Growth Chart: [facility] (Girls, 2- 20 Years) documented in this encounter Progress Notes * Shahriar Ritchie MD - 10/28/2021 2:30 PM CST TD Chaidez is a 16 y.o. female here for evaluation of chronic right knee pain. This is been bothering her for at least the last four years without specific injury. She does play volleyball consistently. She is now playing in college in [place]. She has back in a couple of weeks. She states about a yearand half ago the pain went from just with volleyball to now a all the time. She gets popping on a consistent basis particularly when she bends and extends her knee. The popping is painful. She has seen a chiropractor in the past who diagnosed her with tendinitis. She has gone to physical therapy several times and has work with her water trainer at school and college over this last semester without improvement. She has done ice and heat and cupping and deep tissue work without improvement. The pain is diffusely around the knee a but usually is more inferior and medial and extending superiorto the patella. They do note swelling at times. Physical Exam On physical exam, she is well appearing and in no distress. She has fairly significant and diffuse tenderness throughout the knee including directly over the patella, the patellar tendon, the medial and lateral patellar borders and medial lateral patellar facets. She has tenderness over the medial and lateral joint lines as well. Her ligament exam was stable to Savannah's, posterior drawer as wellas varus and valgus stress. Alena's was mildly painful. She has pain with patellofemoral grind test to look stability with does have weak hip girdle on the right side only with Trendelenburg testing. Apprehension test was negative. She does have mild J tracking of the right patella. Otherwise franny rovascular and skin exam were intact. Imaging X-rays of the right knee, four views, were obtained and reviewed with her today and were felt to benormal Assessment Chronic right knee pain now there constantly, not improving with physical therapy and other modalities over the last several years. Concern is a possible articular cartilage injury to the joint or possibly meniscal tear. Plan Given her chronic problem consistent pain and popping I do recommend further evaluation with an MRIof her right knee. We will discuss things further following her MRI. In the meantime I did recommend resting from activity if it is causing her increased pain in her knee. Shahriar Ritchie MD Therapeutic Recreation Specialist, Department of Orthopedics and Pediatrics Irish Moss Gatherer, Young Athlete Design Engineer Agricultural Equipment, [facility] Office notes are dictated by Dr. Ritchie with speech recognition software. Leaf Binner variations may occur. KEAG OPERATOR documented in this encounter Plan of Treatment Not on file documented as of this encounter Results * MRI Knee Right WO Contrast (11/04/2021 6:22 PM NAUMKEAG OPERATOR) Anatomical Region Laterality Modality Lower Extremities Right Magnetic Reson ance 11/05/2021 10:5 4 AM NAUMKEAG OPERATOR Impressions 11/06/2021 3:35 PM NAUMKEAG OPERATOR 1. Nondisplaced horizontal tear of the posterior horn of the right medial meniscus extending into the junction between the body and posterior horn. 2. Thin, high grade partial thickness tendon of the central portion of the distal right patellar tendon and mild infrapatellar bursitis. 3. Small right knee effusion. Dictated by: Praful Perez The radiology attending physician has personally reviewed this study, and had reviewed and/or edited this written report and agrees with it. Electronically signed by: Julee Torres MD Narrative 11/06/2021 3:35 PM NAUMKEAG OPERATOR EXAMINATION: 1. MRI right knee without contrast HISTORY: ??Chronic right knee pain which has failed conservative therapy with diffuse tenderness of the right knee. TECHNIQUE: Multiplanar multi sequence MRI examination of the right knee was performed with an extremity coil. No intravenous or intra-articular contrast was administered for this examination. Symptom marker was placed at the anterior aspect of the right knee. FINDINGS: Comparison is made to right knee radiograph dated 10/28/2021. There is a non displaced horizontal tear of the posterior horn of the medial meniscus which extends into the junction between the body and posterior horn. The cartilage and marrow are in the medial compartment are normal. The lateral meniscus is normal. The cartilage and marrow in the lateral compartment are normal. The patellofemoral compartment cartilage and marrow is normal. The cruciate ligaments are intact. There is a thin, high grade partial thickness tendon of the central portion of the distal patellar tendon with subchondral edema and cyst formation at its insertion. The medial and lateral patellofemoral ligaments are normal. The bone marrow is normal. There is no popliteal cyst. There is a small right knee effusion. There is mild infrapatellar bursitis. Procedure Note Teresa Torres MD - 11/06/2021 EXAMINATION: 1. MRI right knee without contrast HISTORY: Chronic right knee pain which has failed conservative therapy with diffuse tenderness of the right knee. TECHNIQUE: Multiplanar multi sequence MRI examination of the right knee was performed with an extremity coil. No intravenous or intra-articular contrast was administered for this examination. Symptom marker was placed at the anterior aspect of the right knee. FINDINGS: Comparison is made to right knee radiograph dated 10/28/2021. There is a non displaced horizontal tear of the posterior horn of the medial meniscus which extends into the junction between the body and posterior horn. The cartilage and marrow are in the medial compartment are normal. The lateral meniscus is normal. The cartilage and marrow in the lateral compartment are normal. The patellofemoral compartment cartilage and marrow is normal. The cruciate ligaments are intact. There is a thin, high grade partial thickness tendon of the central portion of the distal patellar tendon with subchondral edema and cyst formation at its insertion. The medial and lateral patellofemoral ligaments are normal. The bone marrow is normal. There is no popliteal cyst. There is a small right knee effusion. There is mild infrapatellar bursitis. IMPRESSION: 1. Nondisplaced horizontal tear of the posterior horn of the right medial meniscus extending into the junction between the body and posterior horn. 2. Thin, high grade partial thickness tendon of the central portion of the distal right patellar tendon and mild infrapatellar bursitis. 3. Small right knee effusion. Dictated by: Praful Perez The radiology attending physician has personally reviewed this study, and had reviewed and/or edited this written report and agrees with it. Electronically signed by: Julee Torres MD Shahriar Ritchie MD IMG MRI PROCEDURES Final Result * XR Knee Right 4+ View (10/28/2021 2:54 PM NAUMKEAG OPERATOR) Anatomical Region Laterality Modality Lower Extremities, Knee Right Computed Radiography 10/28/2021 2:58 PM NAUMKEAG OPERATOR Impressions 10/28/2021 2:58 PM NAUMKEAG OPERATOR Mobile moderate knee joint effusion Small bone island posterior proximal tibial metaphysis Otherwise normal without fracture identified Electronically signed by: Aditya Schmid MD Narrative 10/28/2021 2:58 PM NAUMKEAG OPERATOR EXAMINATION: RIGHT KNEE ?10-28-2021 HISTORY: Pain FINDINGS: [...] documented in this encounter Visit Diagnoses Diagnosis Chronic pain of right knee- Primary Right knee pain, unspecified chronicity Chronic pain of right knee documented in this encounter Care Teams Area Manager Relationship Specialty Start Date End Date Jed Bustamante MD [address] [place] [id number] PCP - General Pediatrics 10/21/21 documented as of this encounter
--- OUTSIDE RECORDS SUMMARY | 2024-10-04 05:23 | XMS_ITS | Encounter Summary ---
Author Organization [facility] Address [address] [facility] [address] [place] [address] Phone Care Team Providers Care Extern Name Role Phone Jed Bustamante MD Primary Care Provider Reason for Visit * Reason Onset Date Comments Scheduling Appointments 11/14/2021 Right kn ee Encounter Details Date Type Department Care Team (Late st Contact Info) Description 11/14/2021 Telephone [facility] Orthopaedic Surgery [address] [place] [address] 2nd [address] [place] [address] Jonathan Valentine ATC Scheduling Appointments (Right knee) Social History Tobacco Use Types Packs/Day Years Used Date Smoking Tobacco: Never Smokeless Tobacco: Never Comments Unknown Sex and Gender Information Value Date Recorded Sex Assigned at Not on file Legal Sex Female 7:21 PM RACE ENGINE BUILDER Gender Identity Not on file Sexual Orientation Not on file documented as of this encounter Miscellaneous Notes * Telephone Encounter - Franny Rome RMA - 11/25/2021 10:08 AM CST Appointment with Dr. Macias was scheduled for 12/15/21 (CAM). ENGINE BUILDER * Telephone Encounter - Franny Rome RMA - 11/18/2021 1:15 PM CST Patient's dad called and left a message to schedule an appointment with one of the surgeons. I called him back and left a message on his voicemail to call us back so that we may facilitate an appointment. ENGINE BUILDER * Telephone Encounter - Jonathan Valentine ATC - 11/14/2021 9:59 AM CST Spoke with Dm Davis's father. They were wondering about what to do as far as following up with her MRI. I asked if they have received Dr. Ritchie's voicemail and they have not. Per Dr. Ritchie's note, he wanted her to follow up with one of our sports surgeons. She is back at school now [place] of [place] and does not know when she will be able to come in for an appointment. She will contact theoffice back regarding setting up a date and time. She will discontinue all physical activities for now. ENGINE BUILDER documented in this encounter Plan of Treatment Not on file documented as of this encounter Visit Diagnoses Not on filedocumented in this encounter Care Teams Extern Relationship Specialty Start Date End Date Jed Bustamante MD [address] [place] [address] PCP - General Pediatrics 10/21/21 documented as of this encounter
--- OUTSIDE RECORDS SUMMARY | 2024-10-04 05:23 | XMS_ITS | Encounter Summary ---
Author Organization [facility] Healthcare Address [address] [place] [address] Care Team Providers Care Outdoor Studies Professor Name Role Phone Jed Bustamante MD Primary Care Provider Encounter Details Date Type Department Care Team (Late st Contact Info) Description 12/26/2021 9:15 AM SET UP WORKER - 12/26/2021 10:00 AM [facility] Surgery [facility] [address] [place] [address] Dwaine Macias IV, MD [address] [place] [address] [address] [place] [address] RIGHT KNEE ARTHROSCOPY, RESECTION PLICA Surgery Details Date/Time Status Location OR Service Patient Class Case Class Case Type Trauma Case? 12/26/2021 9:15 AM Posted [facility] OPERATING ROOM OR 2 Orthopaedics Outpatient Elective Panel 1 Procedure LRB Anes Op Region Wound Class Comments RIGHT KNEE ARTHROSCOPY, RESE CTION PLICA Right General Knee Class I - Clean Surgeon Surgeon Role Service Panel Dwaine Macias IV, MD Primary Orthopaedics 1 Mamadou Gutierrez DO Fellow Orthopaedics 1 documented in this encounter Social History Tobacco [...] on file Legal Sex Female 7:21 PM SET UP WORKER Gender Identity Not on file Sexual Orientation Not on file documented as of this encounter Last Filed Vital Signs Vital Sign Reading Time Taken Comments Blood Pressure 103/55 12/26/2021 10:00 AM SET UP WORKER Pulse 52 12/26/2021 10:00 AM SET UP WORKER Temperature 37.2 ??C (99 ??F) 12/26/2021 9:20 AM SET UP WORKER Respiratory Rate 14 12/26/2021 10:0 0 AM SET UP WORKER Oxygen Saturation 100% 12/26/2021 10: 00 AM SET UP WORKER Inhaled Oxygen Concentration - - Weight 63.6 kg (140 lb 3.2 oz) 12/26/2021 7:19 A M SET UP WORKER Height 175.3 cm (5' 9 ) 12/26/2021 7:19 AM SET UP WORKER Body Mass Index 20.7 12/26/2021 7:19 AM SET UP WORKER Body Mass Index Percentile 39.97% 12/26/2021 7:1 9 AM SET UP WORKER Growth Chart: [facility] (Girls, 2- 20 Years) documented in this encounter Discharge Instructions * Discharge Instructions* Ashleigh Lema RN - 12/26/2021 9:44 AM SET UP WORKER Do not drive/operate heavy machinery for 24 hours. Do not make sign/authorize major decision for 24 hours. A responsible adult must be present for the first 24 hours after surgery. Have assistance with ambulation for first 24 hours after surgery UP WORKER documented in this encounter Medications at Time [...] this encounter H&P Notes * Lenka Sunshine, MACHINE TECHNICIAN - 12/26/2021 7:23 AM CST Outpatient Pre-Procedure History and Physical Subjective Patient is a 16 y.o. female with chief complaint of right knee pain. Indication For Procedure: Pre-op Diagnosis * Complex tear of medial meniscus of right knee as current injury, subsequent encounter [S42.307I] Planned Procedure RIGHT KNEE ARTHROSCOPY - PARTIAL [...] Macias IV, MD at 12/26/2021 8:10 AM SET UP WORKER UP WORKER UP WORKER documented in this encounter Miscellaneous Notes * Perioperative Nursing Note - Ashleigh Lema RN - 12/26/2021 9:19 AM SET UP WORKER Pt in bed in lowest position locked [...] Denies nee dto void prior to discharge. UP WORKER * Brief Op Note - Mamadou Gutierrez DO - 12/26/2021 8:52 AM CST Operative Progress Note Surgical Team: Surgeon(s) and Role: * Dwaine Macias IV, MD - Primary * Mamadou Gutierrez DO - Fellow Anesthesiologist: Jurgen Gtz MD COPYING MACHINE MECHANIC: Kirsten Finnegan CRNA Pipe Stress Engineer: Haily Rod RN Pipe Stress Engineer Relief: Jody Naranjo RN Scrub: Diana Ireland RN Business Line Manager: Hazel West NP DATE OF SURGERY : 12/26/2021 Preoperative Diagnosis: Pre-op Diagnosis * Complex tear of medial meniscus of right knee as current injury, subsequent encounter [S83.415D] Postoperative Diagnosis: Post-op Diagnosis * Complex tear of medial meniscus of right knee as current injury, subsequent encounter [S83.186D] Procedure(s): Procedure(s) (LRB): RIGHT KNEE ARTHROSCOPY, RESECTION [...] Macias IV, MD at 12/26/2021 9:20 AM SET UP WORKER UP WORKER UP WORKER * Perioperative Nursing Note - Ana Stern RN - 12/26/2021 7:37 AM SET UP WORKER Pt's father with pt and will care for pt for 24 hours post surgery. Crutches given, sized and pt. used them in pre-op. Verbalized feeling safe on them. Pt has ice packs for home post op use. UP WORKER * Op Note - Gilberto, Dwaine Mclaughlin IV, MD - 12/26/2021 12:00 AM CST Preoperative Diagnosis Right knee medial meniscus tear. Postoperative Diagnosis Right knee pathologic plica. Procedure Right knee arthroscopic resection of plica. Surgeon Dr. Dwaine Macias. Mechanic Welder Truck Driver Dr. Mamadou Gutierrez. Anesthesia General. IV Fluids [...] in the room. Job ID/VF Job ID: [id number] UP WORKER * Pre-Procedure Instructions - Cora Pritchard RN - 12/25/2021 1:07 PM CST We are pleased that you and your doctor have chosen [facility] for your surgery. We hope the following information will help make your visit a pleasant one. The name of the building is [facility] in [place]. Directions to facility (address is [address] [place] [address] [address] [facility] [address] [facility] exit. Zip [address] When you enter the building, look directly to your left, you will see 2 glass double doors. These double doors say [address]. Go through those double doors and check in with the corporate receptionist. Bring glass case Pt. Needs crutches and needs to learn how to use them. Bring pillows, leave in car. Patient has ice pack for home. Pt. Has Gel packs Will need Urine sample a.m. Of surgery. Please let the corporate receptionist know if you need to empty [...] a few sips of water. Pt's. Abdirahman [phone] will be with patient and care for [...] or purchase it from the refreshment area. UP WORKER * Pre-Procedure Instructions - Brandi Whitten NP - 12/22/2021 4:19 PM CST [facility] Location: [facility] The night before your surgery: * Do [...] COVID-19. ??? You test positive for COVID-19. UP WORKER * Perioperative Nursing Note - Silverio Hollins RN - 12/22/2021 12:11 PM SET UP WORKER [facility] Perioperative Nursing Note Telephone Preoperative Evaluation ([facility]) - TELEPHONE ONLY, NO PHYSICAL EXAM Date: [...] provided Information Provided on Healthcare Directives: Yes Communication/Funeral Director/Embalmer/Owner Needs Communication Needs: Glasses Patient's Preferred Language: Panamanian Is an soil conservation aide needed? : No Assistive Devices/DME: Eyeglasses Discharge [...] in a congregate living facility (ex. assisted living/shelter facility, senior care, halfway)?: No Have you tested positive for COVID-19 [...] 20 seconds. Use an alcohol- based hand shirt operator that contains at least 60% alcohol if soap and water are not available. ADDITIONAL COMMENTS/ FOLLOW UP UP WORKER * Pre-Procedure Instructions - Silverio Hollins RN - 12/22/2021 12:09 PM SET UP WORKER [facility] ([facility]) [...] your insurance card, a photo ID (example: Embedded Hardware Engineer's License) and a method of payment for [...] Pathway to Excellent Care by the followinglink: [email or web address] How To Prepare Your Skin [...] Remove nail coverings, artificial nails and nail spanish. The Morning of Surgery: Take a shower [...] to patient unable to go to a [facility] Testing Site. In-basket Message sent to Surgeon's Messaging Pool stating that patient is unable to go to [facility] Testing Site for COVID Test & surgeon's of fice needs to contact patient and set up COVID Test for patient. Patient is aware and has been notified to follow up with surgeon's office to get local COVID Testing set up. . If you are going to a [facility] Testing Site for COVID testing, please arrive at least 30 minutes PRIOR to lab closing time. If you have COVID testing or should have COVID testing for your surgery/procedure, please read below section: If you need to reschedule your COVID test to a different location or if your surgery gets rescheduled, you MUST call [phone] Wednesday-Wednesday 8am-4:30pm to get your COVID testing rescheduled or your lab order will not be available at Testing Sites. COVID Testing is only valid for up to 96 hours prior to surgery date, unless otherwise specified. If you are unable to reach staff at the above phone number, please call the CPAP Staff at [phone]. This number cannot order a lab test, [...] least 20 seconds. Use an alcohol-based hand shirt operator that contains at least 60% alcohol if [...] for the most updated information. Information on [facility]: Please view [email or web address] (Patient & Visitor Information) for additional details regarding Advanced Directive forms, AWARE, directions, parking information, lodging, Internet access, dining and more. Information on [facility]: Please view [email or web address] (Patient and Visitor Information) for parking/directions and more. For MyChart information, to activate account or password recovery, please go to [email or web address] or call [phone] (toll-free: [phone]). Information for Suicide Prevention: National Suicide Prevention Lifeline (2-925- 683-NQUN (4794)). Surgery Times: For patients [facility], if your surgeon's office has not notified you of your surgery time by NOON THE BUSINESS DAY BEFORE your surgery, please call the surgery center [phone]. UP WORKER documented in this encounter Plan of Treatment Not on file documented as of this encounter Procedures Procedure Name Priority Date/Time Associated Diagnosis Comments ARTHROSCOPY KNEE MENISCAL DEBRIDEMENT 12/26/2021 8:35 AM SET UP WORKER Complex tear of medial meniscus of right knee as current injury, subsequent encounter POCT HCG, URINE Routine 12/26/2021 7:48 AM SET UP WORKER documented in this encounter Results * POCT hCG, urine (12/26/2021 7:48 AM SET UP WORKER) HCG, ur, POC Negative Lot Number 0 QC Backgroud Clear Acceptable QC Control Line Acceptable Urine 12/26/2021 7:48 AM SET UP WORKER Haily Huffman MACHINE TECHNICIAN POINT OF CARE TEST ORDERA BLES Final Result documented in this encounter Visit Diagnoses Diagnosis Complex tear of medial meniscus of right knee as current injury- Primary Complex tear of medial meniscus of right knee as current injury, subsequent encounter documented in this encounter Admitting Diagnoses Diagnosis Complex tear of medial meniscus of right knee as current injury documented in this encounter Administered Medications Inactive Administered Medications - up to 3 most recent administrations Medication Order MAR Action Action Date Dose Rate Site bupivacaine (MARCAINE) 0.5 % (5 mg/mL) preservative free injection As needed, Starting on Wed12/26/21 at 0906, Intra-Op Given 12/26/2021 9:06 AM SET UP WORKER 10 mL Surgical Site bupivacaine-EPINEPHrine (MARCAINE with EPI) 0.25 %-1:200,000 preservative free injection As needed, Starting on Wed12/26/21 at 0853, Intra-Op Given 12/26/2021 8:53 AM SET UP WORKER 10 mL Surgical Site HYDROcodone-acetaminophen (NORCO) 5-325 mg per tablet 1 tablet 1 tablet, oral, Every 20 min PRN, 3rd line for pain, breakthrough pain, May give TWO doses at the same time for moderate to severe pain after consulting with Anesthesiologist., Starting on Wed12/26/21 at 0925, For 2 doses, Phase I, Indications: PainIndications:Pain Given 12/26/2021 10:04 AM SET UP WORKER 1 tablet Lactated Ringer's (LR) infusion 30 mL/hr, intravenous, Continuous, Starting on Wed12/26/21 at 0815, Use a 500 ml bag for End Stage Renal Disease Patients Restarted 12/26/2021 9:05 AM SET UP WORKER Rate/Dose Verify 12/26/2021 8:31 AM SET UP WORKER 30 mL/h r New Bag 12/26/2021 7:56 AM SET UP WORKER 30 mL/hr 30 mL/hr Lactated Ringer's (LR) irrigation As needed, Starting on Wed12/26/21 at 0900, Intra-Op Given 12/26/2021 9:00 AM SET UP WORKER 6,000 mL Surgical Site lidocaine PF (XYLOCAINE) 10 mg/mL (1 %) preservative free injection 2-10 mg 2-10 mg (0.2-1 mL), other, Once as needed, pain with IV placement, Starting on Wed12/26/21 at 0730, For 1 dose, Pre-Op, Administer volume needed to infiltrate IV site. Given 12/26/2021 7:57 AM SET UP WORKER 5 mg scopolamine patch 72 hour 1 [...] and Vomiting Medication Applied 12/26/2021 8:03 AM SET UP WORKER 1 patch Behind Right Ear documented in [...] Recently Administered Medications Times are shown in SET UP WORKER. Scheduled Medication Order 12/24/2021 12/25/2021 12/26/2021 scopolamine [...] Starting on Wed12/26/21 at 1000, Phase I, 0919 (Continued from OR - Provider: Ashleigh Lema RN)1025 (Stopped - Provider: Ashleigh Lema RN) [...] acetaminophen (TYLENOL) tablet 500 mg 1 08/2022 diphenhydrAMINE (BENADRYL) i njection 12.5 mg 1 12/26/2021 fentaNYL (SUBLIMAZE) preserv ative free syringe 25 mcg 1 12/26/2021 hydrALAZINE (APRESOLINE) injection 5 mg 1 0 12/26/2021 HYDROmorphone (DILAUDID) injection 0.2 mg 1 12/26/2021 labetaloL (NORMODYNE,TRANDAT E) injection 5 mg 1 12/26/2021 Lactated Ringer's (LR) infusion 1 meperidine (DEMEROL) preserv ative free injection 12.5 [...] 12/26/2021 documented in this encounter Care Teams Outdoor Studies Professor Relationship Specialty Start Date End Date Jed Bustamante MD [address] [place] [address] PCP - General Pediatrics 10/21/21 documented as of this encounter
--- OUTSIDE RECORDS SUMMARY | 2024-10-04 05:23 | XMS_ITS | Encounter Summary ---
Author Organization [facility] Healthcare Address [address] [place] [address] Care Team Providers Care Carpenter Maintenance Name Role Phone Jed Bustamante MD Primary Care Provider Reason for Referral * MRI/CAT/PET Scan (Routine) - Closed Specialty Diagnoses / Procedures Referred By Contac t Referred To Contact Radiology Diagnoses Chronic pain of right knee Procedures MRI Knee Right WO Contrast Shahriar Ritchie MD Phone: tel: fax: [place] [address] [place] [phone] Referral ID Status Reason Start Date Expiration Date Visits Re quested Visits Authorized [id number] Closed 10/28/2021 11/27/2022 1 1 M CRANE OPERATOR Reason for Visit * MRI/CAT/PET Scan (Routine) - Closed Specialty Diagnoses / Procedures Referred By Contac t Referred To Contact Radiology Diagnoses Chronic pain of right knee Procedures MRI Knee Right WO Contrast Shahriar Ritchie MD Phone: tel: fax: [place] [phone] [place] [phone] Referral ID Status Reason Start Date Expiration Date Visits Re quested Visits Authorized [id number] Closed 10/28/2021 11/27/2022 1 1 Encounter Details Date Type Department Care Team (Latest Contact Info) Description 11/04/2021 5:10 PM STEAM CRANE OPERATOR - 11/04/2021 11:59 PM STEAM CRANE OPERATOR Hospital Encounter [facility] [id number] [address] [phone] Shahriar Ritchie MD [address] [place] [address] Chronic pain of right knee Discharge Disposition: Discharge to home or self care Social History Tobacco Use Types Packs/Day Years Used Date Smoking Tobacco: Never Smokeless Tobacco: Never Comments Unknown Sex and Gender Information Value Date Recorded Sex Assigned at Not on file Legal Sex Female 7:21 PM STEAM CRANE OPERATOR Gender Identity Not on file Sexual Orientation Not on file documented as of this encounter Discharge Disposition Disposition Code Departure Means Destination Discharge to home or self care documented in this encounter Plan of Treatment Not on file documented as of this encounter Procedures Procedure Name Priority Date/Time Associated Diagnosis Comments MRI KNEE RIGHT WO CONTRAST Schedule Routine, Read Routine (OP Routine) 11/04/2021 6:22 PM STEAM CRANE OPERATOR Chronic pain of right knee documented in this encounter Results * MRI Knee Right WO Contrast (11/04/2021 6:22 PM STEAM CRANE OPERATOR) Anatomical Region Laterality Modality Lower Extremities Right Magnetic Reson ance 11/05/2021 10:5 4 AM STEAM CRANE OPERATOR Impressions 11/06/2021 3:35 PM STEAM CRANE OPERATOR 1. Nondisplaced horizontal tear of the [...] and agrees with it. Electronically signed by: MD Otoniel Brody 11/06/2021 3:35 PM STEAM CRANE OPERATOR EXAMINATION: 1. MRI right knee without [...] it. Electronically signed by: Julee Torres MD us Shahriar Ritchie MD IMG MRI PROCEDURES Final Result documented in this encounter Visit Diagnoses Diagnosis Chronic pain of right knee documented in this encounter Care Teams Carpenter Maintenance Relationship Specialty Start Date End Date Jed Bustamante MD [address] [place] [id number] PCP - General Pediatrics 10/21/21 documented as of this encounter
--- OUTSIDE RECORDS SUMMARY | 2024-10-04 05:23 | XMS_ITS | Encounter Summary ---
Author Organization [facility] Address [address] [place] [address] Phone Care Team Providers Care Director Of Instrumental Music Name Role Phone Jed Bustamante MD Primary Care Provider Encounter Details Date Type Department Care Team (Late st Contact Info) Description 12/25/2021 Orders Only [facility] Orthopaedic Surgery [address] [place] [address] [place] [address] [place] [address] [place] [address] Social History Tobacco Use Types Packs/Day Years [...] on file Legal Sex Female 7:21 PM OIL AND GAS DRAFTER Gender Identity Not on file Sexual Orientation Not on file documented as of this encounter Ordered Prescriptions Prescription Sig Dispense Quantity Refills Last Filled Start Date End Date ondansetron ODT (ZOFRAN-ODT) 4 mg disintegrating tablet Take 1 tablet (4 mg total) by mouth every 8 (eight) hours as needed for nausea or vomiting 12 tablet 12/26/2021 meloxicam (MOBIC) 7.5 mg tablet Take 1 tablet (7.5 mg total) by mouth daily for 10 days 10 tablet 12/26/2021 documented in this encounter Plan of Treatment Not on file documented as of this encounter Visit Diagnoses Not on filedocumented in this encounter Care Teams Director Of Instrumental Music Relationship Specialty Start Date End Date Jed Bustamante MD [address] [place] [id number] PCP - General Pediatrics 10/21/21 documented as of this encounter
== END 2024-09-30 11:30 | disposition home or self-care (01) ==
PROVIDERS: Emergency Provider Nurse Practitioner Family
DX: R10.12 Left upper quadrant pain (principal)
CPT/HCPCS: 81003; 81025; 87086; 99203; G0463